=== PATIENT | male | born 1945 | race Caucasian/White ===

== ENCOUNTER 2019-12-18 09:32 | Inpatient (IN) | payer OTHER ==
[~2019-12-18] VITALS: Ht 182.9 cm; Wt 79.9 kg
[2019-12-18] MEDS ORDERED: PAXIL 20 MG TAB20 MG PO (11:12)
[2019-12-18] MEDS ORDERED: METFORMIN HCL500 M3 PO (11:13)
[2019-12-18] MEDS ORDERED: Biktarvy (11:15)
[2019-12-18 11:31] VITALS: BP 105/48
[2019-12-18] MEDS ORDERED: LISINOPRIL2.5 MG PO (13:15)
[2019-12-18] MEDS ORDERED: LIPITOR40 MG PO (13:15)
[2019-12-18] MEDS ORDERED: OMEPRAZOLE 20 M20 M1 PO (13:16)
[2019-12-18] MEDS ORDERED: COLCRYS0.6 MG PO (13:17)
[2019-12-18] MEDS ORDERED: MITIGARE0.6 MG PO (13:17)
[2019-12-18] MEDS ORDERED: BACTRIM DS TAB1 EACH PO (13:18)
[2019-12-18] MEDS ORDERED: VITAMIN B-121000 MC2 INJECTION (13:19)
[2019-12-18] MEDS ORDERED: TRAZODONE 150150 M1 PO (13:21)
[2019-12-18] MEDS ORDERED: AZITHROMYCIN500 MG PO (13:22)
[2019-12-18] MEDS ORDERED: FLOMAX0.4 MG PO (13:22)
[2019-12-18] MEDS ORDERED: ROBAXIN 750 MG750 MG PO (13:23)
[2019-12-18] MEDS ORDERED: CIPRODEX OTIC7.5 ML OTIC (13:25)
[2019-12-18] MEDS ORDERED: FLONASE 0.05%50 MCG NASAL (13:26)
[2019-12-18] MEDS ORDERED: MUCINEX600 MG PO (13:26)
[2019-12-18] MEDS ORDERED: ZOFRAN4 MG PO (13:27)
[2019-12-18] MEDS ORDERED: TOPROL XL25 MG PO (13:28)
[2019-12-18] MEDS ORDERED: ASA81BEC PO (13:28)
[2019-12-18] MEDS ORDERED: IPRAT-ALBUT 0.5-3 ML INH (13:30)
[2019-12-18] MEDS ORDERED: LANTUS SUBQ (13:42)
[2019-12-18] MEDS ORDERED: NEXIUM 24HR20 M2 PO (13:43)
[2019-12-18] MEDS ORDERED: AUGMENTIN400 MG/53 PO (13:45)
[2019-12-18 14:49] LABS: HEMOGLOBIN 6.5 gm/dL (14.0-18.0)
[2019-12-18 14:50] LABS: MCH 23.8 pg (26.0-34.0); MCHC 32.8 g/dL (28.0-37.0); MCV 72.5 fL (80.0-100.0); RBC 2.75 mil/uL (4.50-6.00); RDW 17.2 % (10.5-14.5); WBC 7.8 thou/uL (4.0-11.0)
[2019-12-18 14:58] LABS: HEMATOCRIT 19.9 % (42.0-52.0)
--- NOTE | 2019-12-18 15:50 | NUR ---
IN FOR BLOOD TRANSFUSION. FEELING VERY WEAK AND HAVING FREQUENT FALLS AT HOME. T&C DRAWN AND SENT TO BLOOD BANK. RECEIVED CALL FROM EVIE IN BLOOD BAND AT APPROXIMATELY 1300, TELLING ME THE BLOOD HAS TO BE SENT TO [facility] FOR TESTING AND PROBABLY WOULD NOT BE AVAILABLE FOR SEVERAL HOURS. NOTIFIED DR. ROBERTO AND CBC DRAWN. HGB 6.5. RECEIVED ORDER FROM DR. ROBERTO TO ADMIT PATIENT TO MED/SURG FOR FURTHER TESTING. REPORT CALLED TO FRANCISCA JONES. TRANSFERRED TO ROOM 445 VIA WC. PATIENT IN STABLE CONDITION.
[2019-12-18 16:48] VITALS: BP 118/52
[2019-12-18 19:10] VITALS: BP 103/47
--- NOTE | 2019-12-19 04:35 | NUR ---
PATIENT AOX4 MAKES NEEDS KNOWN. PATIENT IS HERE FOR BLOOD TRTANSFUSION WAITING FOR LAB TO CALL WHEN BLOOD IS OBTAINED. PATIENT USING BEDSIDE COMMODE THIS SHIFT. PATIENT IS [place]. PATIENT DENIED PAIN OR DISCOMFORT. OCCOULT STOOL COLLECT AND TAKEN TO THE LAB. NO BLEEDING NOTED THIS SHIFT. PATIENT IN BED ASLEEP AT THIS TIME BREATHING REGULAR AND UNLABOURED.
[2019-12-19 06:19] LABS: HEMOGLOBIN 6.8 gm/dL (14.0-18.0)
[2019-12-19 06:22] LABS: ABSOLUTE NEUTROPHILS 5.6 thou/uL (1.4-8.2); BASOPHILS 0.5 % (0.0-2.0); EOSINOPHILS 0.4 % (0.0-3.0); HEMATOCRIT 21.2 % (42.0-52.0); LYMPHOCYTES 20.3 % (24.0-44.0); MCH 23.5 pg (26.0-34.0); MCHC 32.3 g/dL (28.0-37.0); MCV 72.7 fL (80.0-100.0); MONOCYTES 8.8 % (1.0-8.0); RBC 2.91 mil/uL (4.50-6.00); RDW 17.5 % (10.5-14.5)
[2019-12-19 06:28] LABS: PLATELET COUNT 512 thou/uL (150-400)
[2019-12-19 06:39] LABS: ALBUMIN 1.6 g/dL (3.4-5.0); POTASSIUM 3.9 mmol/L (3.5-5.1); TOTAL BILIRUBIN 0.1 mg/dL (<0.1-1.0)
[2019-12-19 06:41] VITALS: BP 112/61; BP 113/60; BP 115/58
[2019-12-19 07:26] LABS: ANISOCYTOSIS 2+; HYPOCHROMASIA 2+; MICROCYTES SLIGHT; POLYCHROMASIA SLIGHT
[2019-12-19 11:26] LABS: HEMATOCRIT 23.3 % (42.0-52.0); HEMOGLOBIN 7.5 gm/dL (14.0-18.0)
[2019-12-19 17:25] VITALS: BP 110/48
--- NOTE | 2019-12-19 18:02 | NUR ---
PT CARE ASSUMED AT 0700. A&Ox4. HARD OF HEARING WITH HEARING AID. UP WITH ONE ASSIST AND WALKER. PT ON BOARD. IV PATENT WITH NO REDNESS OR EDEMA. SALINE LOCKED. HOME MED IN IV BIN. ONE UNIT OF BLOOD INFUSED. HGB RECHECKED AND NOW 7.5. ACHS WITH NO COVERAGE NEEDED. WHEELCHAIR IN ROOM BELONGS TO PT. EARDROPS IN LEFT EAR. USES URINAL. STILL NEEDING A STOOL SAMPLE. ELEVATED TEMP OF 101.9. GAVE TYLENOL AND RECHECKED WENT DOWN TO 98.6. AT 1700 TEMP STARTED ELEVATING AGAIN TO 99.6. NOTIFIED AND GAVE ORDERS FOR A UA WITH CULTURES. FALL PROTOCOL IN PLACE. CALL LIGHT IN REACH. WILL CONTINUE TO MONITOR.
[2019-12-19 20:30] VITALS: BP 119/61
[2019-12-20 00:57] LABS: URINE BILIRUBIN NEGATIVE (Negative); URINE BLOOD TRACE (Negative); URINE CLARITY CLEAR; URINE COLOR YELLOW; URINE GLUCOSE-RANDOM* NEGATIVE (Negative); URINE KETONES NEGATIVE (Negative); URINE LEUKOCYTES-REFLEX NEGATIVE (Negative); URINE NITRITE-REFLEX NEGATIVE (Negative); URINE PROTEIN (DIPSTICK) NEGATIVE (Negative)
[2019-12-20 02:48] LABS: ABSOLUTE NEUTROPHILS 5.6 thou/uL (1.4-8.2); BASOPHILS 0.3 % (0.0-2.0); EOSINOPHILS 0.3 % (0.0-3.0); HEMATOCRIT 23.2 % (42.0-52.0); HEMOGLOBIN 7.6 gm/dL (14.0-18.0); LYMPHOCYTES 22.4 % (24.0-44.0); MCH 24.5 pg (26.0-34.0); MCV 74.5 fL (80.0-100.0); MONOCYTES 10.9 % (1.0-8.0); PLATELET COUNT 448 thou/uL (150-400); POLYS 66.1 % (36.0-66.0); RBC 3.11 mil/uL (4.50-6.00); RDW 18.7 % (10.5-14.5); WBC 8.5 thou/uL (4.0-11.0)
[2019-12-20 04:00] VITALS: BP 111/49
--- NOTE | 2019-12-20 07:56 | NUR ---
PT LYING IN BED. VOIDING PER URINAL. DENIES PAIN. RESTING COMFORTABLY. NO NEEDS VOICED. FREQUENT OBSERVATION.
[2019-12-20 08:16] VITALS: BP 105/49
--- NOTE | 2019-12-20 12:51 | NUR ---
ASSUMED CARE AT 0700. PT SLEEPING, ALERT AND ORIENTED. PILOT STATION. ASKING WHAT THE PLAN WAS TODAY. VERBALIZES UNDERSTANDING OF PLAN FOR THE DAY. NO OTHER COMPLAINTS. VSS, LOW TEMP, WILL MONITOR. RA. TOLERATING CLEARS. BLOOD SUGARS WNL. PIV SL NO COMPLICATIONS. NO C/O PAIN. WILL CONTINUE TO MONITOR. AWAITING STOOL SAMPLE, VOIDING PER URINAL WITHOUT PROBLEMS. UP WITH ASSIST TO BSC.
[2019-12-20 17:11] VITALS: BP 102/53
[2019-12-20 19:41] VITALS: BP 115/44
[2019-12-21 05:20] VITALS: BP 101/45
[2019-12-21 05:52] LABS: ABSOLUTE NEUTROPHILS 6.3 thou/uL (1.4-8.2); BASOPHILS 0.2 % (0.0-2.0); EOSINOPHILS 0.2 % (0.0-3.0); HEMATOCRIT 24.5 % (42.0-52.0); HEMOGLOBIN 7.9 gm/dL (14.0-18.0); LYMPHOCYTES 18.2 % (24.0-44.0); MCH 24.4 pg (26.0-34.0); MCHC 32.4 g/dL (28.0-37.0); MCV 75.2 fL (80.0-100.0); MONOCYTES 9.1 % (1.0-8.0); PLATELET COUNT 481 thou/uL (150-400); POLYS 72.3 % (36.0-66.0); RBC 3.26 mil/uL (4.50-6.00); WBC 8.7 thou/uL (4.0-11.0)
[2019-12-21 07:48] VITALS: BP 118/58
--- NOTE | 2019-12-21 08:00 | NUR ---
PT LYING IN BED. DENIES PAIN. PLAN FOR EGD AND COLONOSCOPY 12/20. RESTING COMFORTABLY. NO NEEDS VOICED. CALL LIGHT WITHIN REACH. FREQUENT OBSERVATION.
[2019-12-21 08:17] VITALS: BP 115/55
[2019-12-21 09:08] VITALS: BP 115/55
[2019-12-21 12:31] LABS: % SATURATION 7 % (20-39); IRON 11 ug/dL (65-175); TIBC 154 ug/dL (250-450)
--- NOTE | 2019-12-21 16:12 | NUR ---
PT ADMITTED RELATED TO MICROCYTIC ANEMIA; WEAKNESS WITH FREQUENT FALLS. CM ATTEMPTED NUMEROUS PC'S TO ROOM THIS DAY WITH NO RESPONSE. PT HAD EGD AND COLONOSCOPY DONE THIS DAY. CM ATTEMPTED PC TO NUMBER LISTED FOR PT'S BROTHER MIGUELITO INDIVIDUAL WHO ANSWERED INDICATED WRONG NUMBER. THERAPY INDICATED THAT PT RESIDES ALONE WITH NO STEPS TO NAVIGATE AND A WC FOR HOME USE. CM FOLLOWING INDICATED WITH DC PLANNING.
[2019-12-21 16:24] VITALS: BP 112/48
--- NOTE | 2019-12-21 18:58 | NUR ---
VSS-LOW GRADE TEMP THROUGH SHIFT. LUNGS CLEAR-ROOM AIR. NO C/O PAIN. OOB WITH ASSIST X 2, UNSTEADY ON FEET. RESUMED DIET POST PROCEDURES, NO DIFFICULTY, TOLERATED MEALS WELL. FALL PRECAUTIONS IN PLACE, REMAINS IMPULSIVE.
[2019-12-21 19:47] VITALS: BP 108/52
[2019-12-22 01:04] VITALS: BP 111/57
--- NOTE | 2019-12-22 03:23 | NUR ---
PATIENT HAD A TEMP.OF 101 TYLENOL GIVEN PER ORDER, TEMP IS 99.0 AT THIS TIME. PATIENT DENIED PAIN OR DISCOMFORT. NO S/S OF BLEEDING THIS SHIFT. PATIENT USES URINAL OR BEDSIDE COMMODE. PATIENT ENCOURAGED FLUIDS THIS SHIFT. PATIENT IN BED ASLEEP AT THIS TIME BREATHING REGULAR AND UNLABOURED.
[2019-12-22 04:25] VITALS: BP 108/63
[2019-12-22 07:41] VITALS: BP 124/63
[2019-12-22 11:45] LABS: TSH 1.782 uIU/mL (0.358-3.740)
--- NOTE | 2019-12-22 13:37 | NUR ---
ASSUMED CARE AT 0700. PT ALERT AND ORIENTED, ROSEBUD. SLEEPING COMFORTABLY IN BED. VSS, WITH TEMP OF 100. RA. VOIDING PER URINAL. TOLERATING DIET. BLOOD SUGARS CONTROLLED. PIV WITHOUT COMPLICATIONS. NO COMPLAINTS OF PAIN. PRN MEDICATIONS GIVEN ORDERED. WILL CONTINUE TO MONITOR
[2019-12-22 14:34] VITALS: BP 101/49
--- NOTE | 2019-12-22 18:02 | NUR ---
SW reviewed chart and spoke with nursing and attending physician. Pt may need EUS completed per GI. Pt may need transfer to [facility] for procedure. SW attempted to obtain contact number for pt's brother. Number listed and provided by pt is not the correct number. SW is following to assist as needed with discharge planning.
[2019-12-22 19:19] VITALS: BP 118/61
--- NOTE | 2019-12-22 19:23 | NUR ---
ASSUMED CARE OF PATIENT AT AROUND 1300, REPORT FROM ROMAIN/RN. PATIENT UP IN THE RECLINER. DENIES PAIN. RIGHT HAND IV FLUSHED WITH NS AND REMAINS PATENT. THIS RN PAGED DR ROBERTO IN REGARD TO METFORMIN, PATIENT HAD CT SCAN WITH CONTRAST, NO RETURN CALL, METFORMIN HELD. DINNER BLOOD SUGAR 105, PATIENT STATES HE WILL EAT LATER. VOIDS PER URINAL. [place], WITH AMPLIFIED BOX FOR ASSISTANCE WITH HEARING. WILL CONTINUE TO MONITOR.
[2019-12-23 03:07] LABS: IgG 2239 mg/dL (603-1613); IgM 86 mg/dL (15-143)
[2019-12-23 04:07] LABS: IgA 913 mg/dL (61-437)
--- NOTE | 2019-12-23 04:41 | NUR ---
ASSESSED AT START OF SHIFT PT ALERT AND ORIENTED. [place] AND HAS AN AMPLIFIER BOX FOR COMMUNICATION. EVENING MEDS GIVEN AND TYLENOL GIVEN FOR TEMP. URINAL AT BEDSIDE. DENIES PAIN, N AND VOMITTING. FALL PREQ IN PLACE AND WILL CONT WITH POC TILL EOS.
[2019-12-23 05:07] VITALS: BP 106/47
[2019-12-23 07:20] VITALS: BP 110/58
[2019-12-23 13:20] VITALS: BP 126/42
[2019-12-23 13:55] LABS: HEMATOCRIT 24.4 % (42.0-52.0); HEMOGLOBIN 7.9 gm/dL (14.0-18.0); MCH 24.4 pg (26.0-34.0); MCHC 32.4 g/dL (28.0-37.0); MCV 75.3 fL (80.0-100.0); RBC 3.24 mil/uL (4.50-6.00); RDW 19.3 % (10.5-14.5); WBC 9.2 thou/uL (4.0-11.0)
[2019-12-23 14:06] LABS: INR 1.1; PROTIME 10.9 Seconds (9.3-11.4)
--- NOTE | 2019-12-23 15:16 | NUR ---
CM SPOKE WITH PT'S BROTHER MIGUELITO AT [phone]. 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 HE INDICATED THAT PT HAD A FWW AND A WC THAT HE HAD NOT BEEN USING VERY WELL RIFLE CASE REPAIRER. HE INDICATED THAT PT HADN'T BEEN DOING WELL WITH HIS ADLS RIFLE CASE REPAIRER AND THAT HE AND HIS SISTER WERE GOING OVER TO CHECK ON/HELP PT EVERY OTEHR DAY RIFLE CASE REPAIRER. HE INDICATED THAT PT HAD BEEN ON SERVICE WITH [facility] RIFLE CASE REPAIRER. CM ASKED DC TALENT ENGINEER TO NOTIFY THEM THAT PT IS HERE AN INPATIENT. MIGUELITO INDICATED THAT PT HAD BEEN TO [facility], [facility], AND [facility] IN [place] IN THE PAST. HE INIDCATED THAT HE WAS AGREEABLE WITH PT GOING FOR A POST ACUTE CARE STAY BUT THAT CM WOULD NEED TO CONFIRM WITH PT. SHAY INDICATED THAT DR. HOPSON CAN DO AN EUS WITH BIOPSY THIS SATURDAY. CM TRYING TO SEE IF PT IS TO GO FOR THAT AN OUTPATIENT OR IF PT WILL NEED BE BE TRANSFERED AN INPATIENT. CM TO FOLLOW INDICATED WITH DC PLANNING.
[2019-12-23 15:39] VITALS: BP 104/59
--- NOTE | 2019-12-23 16:07 | PATH ---
[facility] [address] [place] [address] PATHOLOGY RPT PROCEDURE Name: KATHERINE GIBSON Room #: 445-P ADM IN M.R.#: [id number] Admission: 12/18/19 Date of : 45 Discharge: Report #: [id number] Path Case #: [id number] LCA Accession Number: [id number] . 01 Material submitted: . colon - POLYP AT TRANSVERSE. Modifiers: transverse . 01 Clinical history: . Anemia . 02 Diagnosis: Polyp, transverse colon, endoscopic biopsy: - Minute tubular adenoma. - Negative for high-grade dysplasia. (IUV:balance wheel screw hole tapper; 12/23/2019) MBR 12/23/2019 1229 Local . 02 Electronically signed: . Comfort Mack MD, Pathologist NPI- [id number] . 01 Gross description: . The specimen is received in formalin, labeled "Katherine Gibson, a polyp at transverse" and consists of a fragment of maciel tissue measuring 0.5 x 0.2 x 0.2 cm which is entirely submitted in A1. (REBECCA; 12/22/2019) JFQ/LINDA 12/22/2019 1059 Local . 02 Pathologist provided ICD-10: D12.3 . 02 CPT . 190586 Specimen Comment: A courtesy copy of this report has been sent to [phone] Specimen Comment: [id number] Specimen Comment: Report sent to / DR ROBERTO Performed at: [address], [place] [id number] MD Benji Llanes MD Phone: [phone] Performed at: [address] [id number] MD Comfort Mack MD Phone: [phone]
--- NOTE | 2019-12-23 16:11 | NUR ---
FAXED REFERRAL TO [facility] SPOKE WITH BENY IN ADM SHE RECEIVED REFERRAL AND WILL REVIEW. PT HAS BEEN AT THEIR FACILITY IN THE PAST. DP TO FOLLOW.
--- NOTE | 2019-12-23 16:12 | NUR ---
PT ON SERVICE WITH [facility] PRIOR TO ADM FAXED CLINICAL UPDATE RECEIVED CONFIRMATION AND LEFT MSG WITH ADM.
--- NOTE | 2019-12-23 16:29 | NUR ---
ASSUMED CARE OF THE PT AT 0700. PT IS ON BEDREST AND IS VERY WEAK WHEN UP WITH ASSIST X1 WITH GAIT BELT AND WALKER. IV DRY AND INTACT. IR FOR CT GUIDED BIOPSY TO BE DONE TOMORROW. PT WILL BE NPO AFTER MIDNIGHT. PT TO D/C TO REHAB, NOT HOME, CM NOTIFIED PER DOCTOR. PT KEEPS RUNNING LOW GRADE TEMP, MEDS GIVEN SEE EMAR. DPOA PHONE NUMBER IS , MIGUELITO, CONTACT, LEFT VM. PT USES URINAL. PT IS [place] AND USES DEVICE. FALL PRECAUTIONS IN PLACE, BED IN THE LOWEST POSITION AND CALL LIGHT IS WITHIN REACH. WILL CONTINUE TO MONITOR THE PT.
[2019-12-23 19:14] VITALS: BP 128/49
[2019-12-24] VITALS (17 sets, daily range): BP systolic 100–120; BP diastolic 50–62
--- NOTE | 2019-12-24 02:36 | NUR ---
ASSESSED AT START OF SHIFT. PT RESTING IN BED [place] OF HEARING. EVENING MEDS GIVEN AND PT NPO AFTER MIDNNIGHT FOR IR TOMORROW. URINAL AT BEDSIDE. DENIES PAIN. FALL PREC IN PLACE AND WILL CONT WITH POC TILL EOS.
[2019-12-24 05:42] LABS: POTASSIUM 4.1 mmol/L (3.5-5.1)
[2019-12-24 05:43] LABS: CALCIUM 8.2 mg/dL (8.5-10.1)
[2019-12-24 10:08] LABS: ANA INTERPRETATION Negative (Negative)
--- NOTE | 2019-12-24 15:12 | NUR ---
REFERRAL FAXED YESTERDAY TO [facility] SPOKE WITH BENY IN ADM SHE CAN ACCEPT AT [place].
--- NOTE | 2019-12-24 15:53 | NUR ---
FAXED REFERRALTO [facility] SPOKE WITH MICHAEL IN ADM SHE RECEIVED REFERRAL AND THE DON IS REVIEWING WILL F/U WITH HER IN THE AM. DP TO FOLLOW.
--- NOTE | 2019-12-24 15:58 | NUR ---
[facility] CAN ACCEPT PT AND WE ARE AWAITING RESPONSE FROM [facility] WHERE DR. YENNIFER ROBERTO WOULD BE ABLE TO FOLLOW PT. CM TO FOLLOW INDICATED WITH DC PLANNING. PT HAD BIOPSY THIS DAY AWAITING RESULTS.
--- NOTE | 2019-12-24 19:32 | NUR ---
PT CARE ASSUMED AT 0700. A&Ox3-4. HARD OF HEARING AND USES A AMPLIFIER BOX. USES THE URINAL. IV IS PATENT WITH NO REDNESS OR EDEMA, SALINE LOCKED. ACHS WITH NO COVERAGE NEEDED. ON ROOM AIR. OT/PT ON BOARD. WENT FOR BIOPSY TODAY AND HAS NOT HAD AN APETITE SINCE RETURNING. BLOOD SUGARS ARE STILL GOOD BUT WILL CONTINUE TO ENCOURAGE HIM TO EAT SAMLL SNACK AND MONITOR BLOOD GLUCOSE. CALL LIGHT IN REACH. FALL PROTOCOL IN PLACE. WILL CONTINUE TO MONITOR.
[2019-12-24 20:07] LABS: HISTOPLASMA MYCELIAL-ID Negative (Negative)
[2019-12-24 21:07] LABS: HISTOPLASMA MYCELIAL-CF Negative (Neg:<1:2)
--- NOTE | 2019-12-25 02:54 | NUR ---
ASSESSED AT START OF SHIFT PT LAYING IN BED DIDN'T TOUCH DINNER TRAY. NIGHT TIME BLOOD SUGAR CHECKED 103 THIS SHIFT. EVENING MEDS GIVEN AND PT RUSSEL IT WELL. NIGHT TIME SNACKS GIVEN WITH HILDA DRINK. PT A&OX4 [place] AND HAS AN AMPLIFIER BOX. URINAL AT BEDSIDE FALL PREC IN PLACE AND CALL LIGHT IN REACH WILL CONT WITH POC TILL EOS.
[2019-12-25 05:22] VITALS: BP 110/53
[2019-12-25 05:27] LABS: HEMATOCRIT 24.3 % (42.0-52.0); MCH 24.5 pg (26.0-34.0); MCV 74.4 fL (80.0-100.0); RBC 3.27 mil/uL (4.50-6.00); RDW 19.7 % (10.5-14.5); WBC 10.8 thou/uL (4.0-11.0)
[2019-12-25 05:50] LABS: ALBUMIN 1.5 g/dL (3.4-5.0); CREATININE 1.1 mg/dL (0.7-1.3); POTASSIUM 4.3 mmol/L (3.5-5.1); TOTAL BILIRUBIN 0.5 mg/dL (<0.1-1.0); TOTAL PROTEIN 8.1 g/dL (6.4-8.2)
[2019-12-25 07:14] VITALS: BP 111/66
[2019-12-25 15:07] VITALS: BP 129/69
--- NOTE | 2019-12-25 16:36 | NUR ---
PT TO REMAIN HERE OVER WEEKEND TO HAVE MRI. [facility]
[2019-12-25 19:50] VITALS: BP 115/67
[2019-12-26 04:20] VITALS: BP 106/48
--- NOTE | 2019-12-26 06:25 | NUR ---
PT HAD A FEVR OF 100.3 AT THE START OF SHIFT,MANAGED WITH PO TYLENOL,EFFECTIVE.URINAL AT BEDSIDE.PT ALTURAS.PT DENIED PAIN/N/V THIS SHIFT.NO BM THIS SHIFT.PT RESTING ON HIS BED AT THIS TIME.FALL PRECAUTIONS IN PLACE,CALL LIGHT WITHIN REACH.
[2019-12-26 08:53] VITALS: BP 112/67
--- NOTE | 2019-12-26 16:14 | NUR ---
PT A&OX SELF AND PLACE. DENIED PT TODAY SLEEPING THROUGHOUT THE DAY. USES URINAL AND BEDPAN. HAS POOR APPETITE. CALL LIGHT WITH IN REACH, BED ALARM ON. BROTHER MIGUELITO WAS UPDATED TODAY.
[2019-12-26 18:01] VITALS: BP 99/50
[2019-12-26 20:35] VITALS: BP 115/61
--- NOTE | 2019-12-27 00:55 | NUR ---
PT AFEBRILE SO FAR.PT DENIED PAIN/N/V.PT UP TO THE BR WITH ASSIST X1,GAIT BELT AND WALKER,PT ABLE TO MAKE IT TO THE BR BUT WAS NOT ABLE TO MAKE IT BACK TO HIS BED DUE TO BEING SO WEAK.PT WAS INFORMED TO USE BEDPAN SINCE HE IS SO WEAK.SOFT LOOSE BROWN STOOL NOTED.BG MONITORED WITH NO COVERAGE.PT RESTING ON HIS BED AT THIS TIME.FALL PRECAUTIONS IN PLACE,CALL LIGHT WITHIN REACH.
[2019-12-27 03:45] VITALS: BP 111/59
[2019-12-27 05:43] LABS: BASOPHILS 0.4 % (0.0-2.0); EOSINOPHILS 0.1 % (0.0-3.0); HEMATOCRIT 25.5 % (42.0-52.0); HEMOGLOBIN 8.5 gm/dL (14.0-18.0); MCH 24.6 pg (26.0-34.0); MCHC 33.3 g/dL (28.0-37.0); MONOCYTES 8.4 % (1.0-8.0); PLATELET COUNT 513 thou/uL (150-400); POLYS 77.1 % (36.0-66.0); RBC 3.45 mil/uL (4.50-6.00); RDW 19.4 % (10.5-14.5); WBC 10.4 thou/uL (4.0-11.0)
[2019-12-27 06:01] LABS: ALBUMIN 1.6 g/dL (3.4-5.0); CALCIUM 8.3 mg/dL (8.5-10.1); CREATININE 1.1 mg/dL (0.7-1.3); POTASSIUM 4.4 mmol/L (3.5-5.1); TOTAL BILIRUBIN 0.3 mg/dL (<0.1-1.0); TOTAL PROTEIN 8.3 g/dL (6.4-8.2)
[2019-12-27 09:02] VITALS: BP 90/43
[2019-12-27 16:27] VITALS: BP 123/64
--- NOTE | 2019-12-27 16:41 | NUR ---
PT A&OX3-4. LETHARGIC. IV INTACT IN R AC. TOO WEAK TO TRANSFER WITH ASSIST AT THIS TIME, PT USES URINAL AND BEDPAN. CALL LIGHT W/ REACH ALARM IS ON.
[2019-12-27 19:13] VITALS: BP 120/57
[2019-12-28 03:50] VITALS: BP 101/39
--- NOTE | 2019-12-28 06:08 | NUR ---
ASSUMED PT CARE AT 1900. PT REPORTS NO PAIN. IS STILL VERY WEAK AND USES THE BEDPAN AND URINAL. BLOOD SUGAR WNL. ASKED FOR A BOX LUNCH AND ATE VERY LITTLE OF IT. FALL PRECAUTIONS IN PLACE. SLEPT MOST THE SHIFT, NO OTHER SIGNIFICANT CHANGES.
[2019-12-28 08:06] VITALS: BP 120/66
--- NOTE | 2019-12-28 14:08 | PATH ---
[facility] [address] [address] PATHOLOGY RPT PROCEDURE Name: JORGITO GIBSON Room #: 445-P ADM IN M.R.#: [id number] Admission: 12/18/19 Date of : 45 Discharge: Report #: [id number] Path Case #: [id number] Note LCA Accession Number: [id number] TESTS RESULT FLAG UNITS REF RANGE LAB Clinician Provided Cytology Information No. of containers..01 Slide Source: RETRO PERITNEAL MASS DIAGNOSIS: 02 RETRO PERITNEAL MASS, FINE NEEDLE ASPIRATION INCONCLUSIVE. SCATTERED ATYPICAL LYMPHOCYTES, SEE COMMENT. LYMPHOCYTES, HISTIOCYTES AND BLOOD ARE PRESENT, CONSISTENT WITH A LYMPH NODE. Commetn: Examination of the smears is limited by air-drying artifact along with a lack of formalin fixed cell block for additional stains to be performed. The smears show scattered atypical and enlarged lymphocytes which may represent air-drying artifact or neoplastic cells. Portion of this sample was submitted in RPMI which is sent for flowcytometric analysis. Results of this will be submitted in an addendum to this report. Please note that an FNA sample of an enlarged lymph node may not be reliable as sample may not be outbound telemarketing representative; an excisional biopsy is suggested if clinically indicated. Correlate clinically and follow-up as indicated. Pathologist ICD10: 02 K68.9 Addendum: 02 Special studies report received from [facility], [address] [place] [address], [address], [place], [address], on case [id number], labeled with their number [id number], dated 12/26/2019. . Flow Cytometry: Hematologic Neoplasia Assessment . Clinical History Retroperitoneal mass . Indication for Study Evaluation for hematolymphoid neoplasia . Specimen Tissue, Retroperitoneal Mass . Viability 74% (7AAD exclusion) . Interpretation Tissue, Retroperitoneal Mass: No evidence of B-cell or T-cell lymphoproliferative disorder [address] [address] PATHOLOGY RPT PROCEDURE Name: JORGITO GIBSON Room #: 445-P ADM IN M.R.#: [id number] Admission: 12/18/19 Date of : 45 Discharge: Report #: [id number] Path Case #: [id number] . Comments No immunophenotypic evidence of non-Hodgkin lymphoma, blastic cells or plasmacytoma is detected in this analysis. Some large cell lymphomas are prone to rapid degeneration which can render such lesions undetectable by flow cytometry. Also, Hodgkin lymphoma, some T cell lymphomas, and T-cell-rich B-cell lymphoma may not be detectable by flow cytometry. A thorough clinical, histologic and immunohistochemical correlation is recommended for full exclusion of non-hematolymphoid cellular processes, atypical lymphoid reactions, granulomatous disease or Hodgkin lymphoma. . Populations Analyzed Lymphocytes: 35% B-cells: 2.7%, polytypic/polyclonal sIg light chain pattern K/L=2:1 T-cells: no significant abnormalities of the markers tested CD4:CD8: 0.4 Granulocytes: 17.4% Present and phenotypically mature neutrophils. CD45 Negative 47% No significant reactivity with the markers tested Events/Debris: (may represent non-hematolymphoid cells, degenerated cells, debris, unlysed red blood cells, etc.) . Morphologic Evaluation A slide was reviewed for type disk quality control supervisor purposes only. . Specimen Description Due to low cell count, the lab is unable to provide an accurate cell yield. A limited panel of antibodies was performed and an average of 8,418 events were acquired per tube. Flow cytometry data derived from an acquisition with less than 10,000 events needs to be interpreted within the context of all clinical, laboratory, and morphologic information. . Reagent(s) Used CD3, CD4, CD5, CD8, CD10, CD19, CD20, CD38, CD45, CD57, kappa, lambda . at [facility]. Jose Burger MD Pathologist . . Intended Use Flow cytometry is optimally used to immunophenotypically characterize abnormal populations when they are detected. Negative flow cytometry results do not exclude lymphoma or neoplasia. Possible false negative flow cytometry results may occur in, but are not limited to, the following: neoplastic cells in Hodgkin lymphoma are not typically adequately [address] [address] PATHOLOGY RPT PROCEDURE Name: JORGITO GIBSON Room #: 445-P ADM IN M.R.#: [id number] Admission: 12/18/19 Date of : 45 Discharge: Report #: [id number] Path Case #: [id number] represented by routine clinical flow cytometry; neoplastic cells may be lost or inadequately represented due to degeneration, sample processing, sampling artifact, or patchy involvement; plasma cells are typically underrepresented by flow cytometry; immature cells/blasts may be underrepresented due to hemodilution; myeloproliferative disorders and low grade myelodysplasia may not have immunophenotypic abnormalities or increased blasts. Correlation with all available clinical, laboratory, and morphologic data is always necessary to assess for the possibility of false negative flow cytometry results and to establish a diagnosis. Each marker in this analysis was used to assess for potential antigenic abnormalities or to evaluate detected abnormalities. . Any image or images that accompany this report are outbound telemarketing representative images only and should not be used to render a diagnosis. . Disclaimer(s) This test was developed and its performance characteristics determined by [facility]. It has not been cleared or approved by the Food and Drug Administration. . [facility] is a business unit of [employer] a wholly-owned subsidiary of [employer]. . This test was performed at [facility]. at [address] [facility] [address], [place], [address] - [place] Pumper: Jim Strickland MD. . For inquiries, the physician may contact Lab: [phone] . A complete copy of the report is on file. . Professional services performed by [employer]. at [address], [place] [address]. Technical services performed by [employer]. at [address], [place] [address]. . (IUV:amj 12/28/2019) . AZJ/12/28/2019 Addendum Electronically Signed by Comfort Mack MD, Pathologist Signed out by: 02 Comfort Mack MD, Pathologist NPI- [id number] Performed by: 01 Dar Burton, Housing Liaison (ASCP) Gross description: [address] [address] PATHOLOGY RPT PROCEDURE Name: JORGITO GIBSON Room #: 445-P ADM IN M.R.#: [id number] Admission: 12/18/19 Date of : 45 Discharge: Report #: [id number] Path Case #: [id number] 3FX 3 AD /DREW 12/24/2019 1314 Local FLAG LEGEND: L-Low Normal,H-High Normal,LL-Alert Low,HH-Alert High <-Panic Low,>-Panic High,A-Abnormal,AA-Critical Abnormal Performed at: 01 [facility] [place] [address] [facility] [address] [place] [address] Benji Llanes MD, 02 [facility] [address] [address] Comfort Mack MD, Specimen Comment: [id number] Specimen Comment: A duplicate report has been generated due to demographic updates. Performed at: [address], [place], [place] [id number] MD Benji Llanes MD Phone: [phone]
--- NOTE | 2019-12-28 16:17 | NUR ---
CM GOT CONSULT TO ARRANGE OP EUS ERCP AT [facility] WITH DR. HOPSON FOR THIS SATURDAY. THEY CALLED AND INDICATED THAT THEN NEED CLINICAL INFO FAXED OVER. CM SENT CLINICAL INFO TO [facility] ASKED THAT RADIOLOGY CLOUD IMAGING OVER TO THEM. CM NOTIFIED CM CAN CLOSING MACHINE TENDER OF INTENTION FOR PT TO GO TO [facility] FOR PROCEDURE AND READMIT HERE TO [facility]. CM TO FOLLOW INDICATED WITH DC PLANNING.
[2019-12-28 16:45] VITALS: BP 111/52
--- NOTE | 2019-12-28 17:47 | NUR ---
ASSUMED CARE OF THE PT AT 0700. PT IS VERY WEAK AND UNABLE TO AMBULATE, EVEN WITH ASSISTANCE. MRI DONE IN THE AM, WITH CONTRAST, DID NOT GIVE PT METFORMIN. PT IS VERY INCONTINENT OF B&B. [facility]SEP STAFF CALLED AND REQ FACE SHEET, H&P FROM ADMITTING, MOST RECENT MD PROGRESS NOTES, ANY DIAGNOSTIC TESTS AND ANY RECENT CONSULTATIONS, FAXED TO ATTENTION DONEVA. PAGED DOCTOR TO SEE IF A COVID TEST CAN BE DONE, PER JOSHUA CAR FOR PT TO HAVE OUT PT PROCEDURE DONE ON SAT. PT CAN SELF TURN. CALL LIGHT WITHIN REACH, BED IN THE LOWEST POSITION AND FALL PRECAUTIONS IN PLACE. WILL CONTINUE TO MONITOR THE PT.
[2019-12-28 19:42] LABS: TSH 2.29 uIU/mL (0.358-3.740)
[2019-12-28 20:06] VITALS: BP 101/44
--- NOTE | 2019-12-29 01:09 | NUR ---
PT AWAKE, ALERT, ORIENTED TO NAME. UNABLE TO ASSESS PT ORIENTATION TO PLACE, TIME, AND SITUATION DUE TO PT BEING LETHARGIC AND HARD OF HEARING. PROVIDED LOW STIMULI ENVIRONMENT, PT OBSERVED RESTING. PT ABLE TO REPOSITION INDEPENDENTLY, PT USING URINAL TO VOID. PT TOLERATING PO INTAKE OF FLUIDS AND CARB CONTROLLED DIET. PT NOTED TO HAVE WEAKNESS, CONTINUED TO REST IN BED. PT RECEIVING THIAMINE VIA IV PIGGYBACK DAILY, FIRST DOSE STARTED THIS SHIFT. COVID SWAB COLLECTED AT MIDNIGHT, SENT TO LAB, PENDING RESULTS PT ANTICIPATING DISCHARGE TO [facility]. PT ROOM REMAINS NEAR NURSE STATION, CALL LIGHT WITHIN REACH, BED ALARM ON, BED IN LOWEST POSITION. WILL CONTINUE TO MONITOR.
[2019-12-29 08:09] VITALS: BP 116/64
--- NOTE | 2019-12-29 08:38 | NUR ---
RECEIVED REPORT FROM NIGHT RN THAT PT WILL MOVE TO [facility] TO FOLLOW UP MASS ON HIS PANCREASE. COVID SWAB TEST DONE LAST NIGHT AND STILL WAIT FOR THE RESULT. RECEIVED PHONE CALL FROM CHRIS AT [facility] REQUESTS TO INFORM THEM ABOUT THE RESULT SOON POSSIBLE TO [facility] AT [phone]. NOTE IN ORDER FOR STAFFING NURSE TO CONTINUE TO FOLLOW UP, SEE ARLENE ORDER IN [facility].
--- NOTE | 2019-12-29 14:12 | NUR ---
COVID SCREENING LAB WAS NEGATIVE CM FAXED RESULT TO [facility] AND IT WAS CONVEYED TO [facility]. CM AWAITING CALL BACK WITH IN FOR SCHWDULING FOR EUS PROCEDURE.
--- NOTE | 2019-12-29 16:19 | NUR ---
PT IS TO GO TO [facility] TOMORROW MORNING Saturday12/30/19. [facility] TO PICK PT UP AT 8:00AM. THEY ARE TO TRANSPORT PT TO REGISTRATION AT [facility]. REPORT TO BE CALLED TO PACU AT . PT AND BROTHER AWARE AND AGREEABLE.PT IS TO RETURN HERE FOLLOWING EUS PROCEDURE WITH DR. HOPSON.
[2019-12-29 16:44] VITALS: BP 110/58
[2019-12-29 19:21] VITALS: BP 117/63
--- NOTE | 2019-12-30 02:02 | NUR ---
ASSUMED PT CARE AT 1900. PT SEEMS WITHDRAWN THIS EVENING. DENIES PAIN. POOR APPETITE AND DID NOT WANT TO EAT UNTIL THIS NURSE OFFERED HIM ICE CREAM, HE ATE IT ALL. USING URINAL DUE TO BEING TOO WEAK TO GET UP. BLOOD SUGARS TO BE CHECKED QAM NOW. SLEPT ON AND OFF ALL NIGHT. REMINDED PT HE IS TO GO TO [facility] IN THE MORNING FOR PROCEDURE. NO OTHER SIGNIFICANT CHANGES.
[2019-12-30 04:46] VITALS: BP 114/69
[2019-12-30 06:25] LABS: ABSOLUTE NEUTROPHILS 9.8 thou/uL (1.4-8.2); BASOPHILS 0.3 % (0.0-2.0); HEMATOCRIT 25.1 % (42.0-52.0); LYMPHOCYTES 13.9 % (24.0-44.0); MCH 23.7 pg (26.0-34.0); MCHC 31.9 g/dL (28.0-37.0); MCV 74.2 fL (80.0-100.0); MONOCYTES 7.4 % (1.0-8.0); PLATELET COUNT 519 thou/uL (150-400); POLYS 78.4 % (36.0-66.0); RBC 3.38 mil/uL (4.50-6.00); RDW 19.3 % (10.5-14.5); WBC 12.5 thou/uL (4.0-11.0)
[2019-12-30 06:40] LABS: INR 1.1; PROTIME 11.4 Seconds (9.3-11.4)
[2019-12-30 06:41] LABS: ALBUMIN 1.6 g/dL (3.4-5.0); CALCIUM 8.1 mg/dL (8.5-10.1); CREATININE 1.4 mg/dL (0.7-1.3); POTASSIUM 4.6 mmol/L (3.5-5.1); TOTAL BILIRUBIN 0.2 mg/dL (<0.1-1.0); TOTAL PROTEIN 8.4 g/dL (6.4-8.2)
[2019-12-30 07:38] VITALS: BP 125/54
[2019-12-30 15:18] VITALS: BP 145/66
--- NOTE | 2019-12-30 16:17 | NUR ---
PT TRANSFERED TO [facility] US PROCEDURE AND RETURNED APPROX 15:30. A&OX4. NEW IV IN R FA. PT MORE ALERT TODAY. MORNING MEDS GIVEN. VSS. CALL LIGHT W/I REACH, BED ALARM ON. PT USES URINAL. WILL CONT POC.
[2019-12-30 21:30] VITALS: BP 118/57
--- NOTE | 2019-12-31 01:08 | NUR ---
ASSUMED PT CARE ATAPPROX 1899.PT WAS OBSERVED LYING ON HIS BACK IN BED WATCHING TV AT SHIFT CHANGE.PT'S BROTHER CALLED AND STATED THAT PT LEFT HIS CLOTHES AND SOME OTHER BELONGINGS AT [facility],HE PICKED THEM UP FOR HIM AND BROUGHT IT OVER HERE.PT'S BROTHER STATED THAT HE TOOK HIS CREDIT CARD HOME FOR SAFE KEEPING.PT'S BROTHER WAS TRANSFERRED TO PT'S ROOM AND HE SPOKE WITH PT.PT HAD A FEVER OF 101.1 AT HS,MANAGED WITH MED,EFFECTIVE.PT STILL WEAK AND [place].URINAL AT BEDSIDE.PT RESTING ON HIS BED AT THIS TIME.FALL PRECAUTIONS IN PLACE,CALL LIGHT WITHIN REACH.
[2019-12-31 03:00] VITALS: BP 102/35
[2019-12-31 06:06] LABS: CREATININE 1.3 mg/dL (0.7-1.3); POTASSIUM 4.8 mmol/L (3.5-5.1)
[2019-12-31 07:17] VITALS: BP 114/55
--- NOTE | 2019-12-31 15:47 | NUR ---
FAXED CLINICAL UPDATE TO [facility] RECEIVED CONFIRMATION AND LEFT MSG WITH BENY IN ADM THAT I WILL F/U WITH HER REGARDING DC PLANS TOMORROW AFTER [facility].
--- NOTE | 2019-12-31 16:15 | NUR ---
CLINICAL UPDATES SENT TO [facility] THIS DAY. AWAITING BIOPSY RESULTS. CM TO FOLLOW INDICATED WITH DC PLANNING.
[2019-12-31 16:18] VITALS: BP 105/63
--- NOTE | 2019-12-31 19:12 | NUR ---
ASSUMED CARE OF PATIENT AT 0715, PATIENT ALERT WITH CONFUSION. PAIBHUMIKA DENIES PAIN THIS SHIFT. PATIENT STILL HAS POOR APPETITE. PATIENT HAD 2 LOOSE, VERY FOUL ODOR, DR ROBERTO NOTIFIED, RECEIVED ORDER TO COLLECT C-DIFF STOOL SAMPLE. ISOLATION CART ORDERED. PATIENT AM BLOOD SUGAR 88, METFORMIN HELF THIS EVENING, DUE TO PATIENT REFUSED DINNER. PATIENT HAS LEFT HAND IV IN PLACE, FLUSHED WITH NS AND REMAINS PATENT. WILL CONTINUE TO MONITOR.
[2019-12-31 19:30] VITALS: BP 119/66
--- NOTE | 2019-12-31 21:42 | NUR ---
PT DENIED PAIN SO FAR.PT REQUESTED FOR AND RECEIVED SALTINE CRACKERS AND GRAHAMS CRACKERS WITH PEANUT BUTTER.NO STOOL NOTED SINCE SHIFT CHANGE.PT'S TEMP AT HS WAS 100.3,TYLENOL ADMINISTERED.PT ENCOURAGED TO DRINK MORE PO FLUIDS.URINAL AT BEDSIDE.PT RESTING ON HIS BED AT THIS TIME.FALL AND ISOLATION PRECAUTIONS IN PLACE,CALL LIGHT WITHIN REACH.
[2020-01-01 04:23] VITALS: BP 112/64
[2020-01-01 08:10] LABS: CALCIUM 8.1 mg/dL (8.5-10.1); CREATININE 1.4 mg/dL (0.7-1.3); POTASSIUM 4.4 mmol/L (3.5-5.1)
[2020-01-01 08:30] VITALS: BP 116/67
--- NOTE | 2020-01-01 15:17 | NUR ---
Physician indicated that we are awaiting preliminary path report. Nephrology was consulted. [facility] is able to accept pt once medically stable. No weekend dishcarge anticpated. CM to follow as indicted with dc planning.
[2020-01-01 16:30] VITALS: BP 116/68
--- NOTE | 2020-01-01 19:52 | NUR ---
ASSUMED CARE OF PATIENT AT 0715, PATIENT ALERT AND ORIENTED X 3, PATIENT DENIES PAIN THIS SHIFT. PATIENT WEAK, UP WITH ASSIST X 2 WITH GB AND WALKER. PATIENT ASSISTED UP TO THE RECLINER BY PT. PATIENT ASSISTED BACK TO BED BY THIS RN AND ROBERT/RN. C-DIFF STOOL COLLECTED AND SENT TO THE LAB. ISOLATION PENDING RESULTS. DR ROBERTO HERE THIS AFTERNOON, NEW CONSULT CALLED FOR NEPHROLOGY/DR HILL RETURNED THE CALL, WILL SEE PATIENT TOMORROW. IV FLUIDS STARTED NS AT 100/HR, LOW SODIUM. PATIENT HAS LEFT FOREARM IV IN PLACE. WILL CONTINUE TO MONITOR.
[2020-01-01 21:25] VITALS: BP 118/57
--- NOTE | 2020-01-02 00:19 | NUR ---
PT SLEEPING DURING ASSESSMENT, NOTED TO AWAKEN TO NAME. PT HARD OF HEARING, HEARING AIDE MACHINE AT BEDSIDE. PT NOT SHOWING SIGNS OF PAIN, DISCOMFORT, OR SOB, FLACC SCORE OF 0. PT REFUSING OTIC ANTIBIOTIC HE REPORTS 'I DONT TAKE THOSE ANYMORE' PT OBSERVED REPOSITIONING INDEPENDENTLY WHILE IN BED. REDNESS NOTED TO COCCYX, BARRIER CREAM APPLIED. PT TOLERATING PO INTAKE OF FLUIDS AND CARB CONTROLLED DIET WITH FLUID RESTRICTION OF 1000ML. PT ROOM REMAINS NEAR NURSES STATION. ENCOURAGED PT TO NOTIFY STAFF FOR ALL NEEDS. CALL LIGHT WITHIN REACH, BED ALARM ON, BED IN LOWEST POSITION. WILL CONTINUE TO MONITOR.
[2020-01-02 05:00] VITALS: BP 113/59
[2020-01-02 05:19] LABS: ABSOLUTE NEUTROPHILS 9.5 thou/uL (1.4-8.2); HEMATOCRIT 24.7 % (42.0-52.0); HEMOGLOBIN 7.9 gm/dL (14.0-18.0); LYMPHOCYTES 8.5 % (24.0-44.0); MCH 24.1 pg (26.0-34.0); MCHC 32.1 g/dL (28.0-37.0); MONOCYTES 1.5 % (1.0-8.0); PLATELET COUNT 478 thou/uL (150-400); RBC 3.29 mil/uL (4.50-6.00); RDW 20.3 % (10.5-14.5); WBC 10.6 thou/uL (4.0-11.0)
[2020-01-02 05:41] LABS: CREATININE 1.3 mg/dL (0.7-1.3)
[2020-01-02 08:00] VITALS: BP 108/54
[2020-01-02 16:20] VITALS: BP 106/51
--- NOTE | 2020-01-02 16:24 | NUR ---
VSS-AFEBRILE. NO C/O PAIN THIS SHIFT. CDIFF TEST NEGATIVE, REMOVED FROM ISOLATION PRECAUTIONS. FAIR APPETITE, VERY LITTLE ORAL FLUIDS CONSUMED, STAYED WELL WITHIN DAILY FLUID RESTRICTION OF 1000ML. REFUSED EVERY TWO HOUR TURNS, WAS ABLE TO OCCASIONALLY USE PILLOWS FOR ALTERNATIVE POSITIONING. INCONTINET OF BLADDER TWICE, 1 EPISODE OF DIARRHEA. FALL PRECAUTIONS IN PLACE, CALLS APPROPRIATELY FOR ANY NEEDED ASSISTANCE.
[2020-01-02 20:45] VITALS: BP 112/61
--- NOTE | 2020-01-03 02:42 | NUR ---
ASSUMED PT CARE AT 1900. PT REPORTS NO PAIN. LOOSE STOOLS TONIGHT. PT REFUSED EAR DROPS - STATES HE DOES NOT NEED THEM ANYMORE. FLUIDS INFUSING PER ORDER. PT IS MUCH UNDER FLUID RESTRICTION TONIGHT. VSS. SLEPT MOST OF SHIFT. MORE TALKATIVE THIS EVENING, WAS JOKING AROUND WIH THIS NURSE. SEEMS IN A BIT OF HIGHER SPIRITS. WILL CONTINUE TO MONITOR THROUGHOUT THE NIGHT.
[2020-01-03 04:37] LABS: ALBUMIN 1.4 g/dL (3.4-5.0); CALCIUM 7.6 mg/dL (8.5-10.1); CREATININE 1.3 mg/dL (0.7-1.3); PHOSPHORUS 2.8 mg/dL (2.5-4.9); POTASSIUM 4.9 mmol/L (3.5-5.1)
[2020-01-03 04:50] VITALS: BP 117/66
[2020-01-03 07:35] VITALS: BP 107/54
[2020-01-03 14:50] VITALS: BP 111/53
--- NOTE | 2020-01-03 15:25 | NUR ---
PT A&OX4. IV INTACT IN L FA INFUSING NS@100 MLS/HR. PT WAS INCONT OF LOOSE STOOL TODAY X1. PT ATE 50% OF BREAKFAST AND 25% LUNCH. PT DOES USE URINAL. DENIES PAIN. PT DENIES NEED TO UPDATE BROTHER MIGUELITO. WILL CONT POC.
[2020-01-03 20:20] VITALS: BP 114/53
[2020-01-04 03:15] VITALS: BP 110/62
--- NOTE | 2020-01-04 03:39 | NUR ---
ASSESSED AT START OF SHIFT PT A&OX4 [place] AND HAS A BOX AMPLIFIER. IV INTACT AND FLUIDS INFUISING. URINAL AT BEDSIDE. NO EPISODE OF DIARRHEA THIS SHIFT. REFUSED NIGHT TIME EAR DROPS STATES DOESN'T NEED IT ANYMORE EDUCATION PROVIDED. PT CALM AND RESTING WELL TONIGHT. FALL PREC IN PLACE AND WILL CONT WITH POC TILL EOS.
[2020-01-04 06:00] LABS: HEMATOCRIT 25.4 % (42.0-52.0); HEMOGLOBIN 8.1 gm/dL (14.0-18.0); MCH 24.6 pg (26.0-34.0); MCV 76.8 fL (80.0-100.0); RBC 3.31 mil/uL (4.50-6.00); WBC 12.7 thou/uL (4.0-11.0)
[2020-01-04 06:14] LABS: PLATELET COUNT 390 thou/uL (150-400)
[2020-01-04 06:24] LABS: ALBUMIN 1.4 g/dL (3.4-5.0); ANION GAP 9 mmol/L (7-16); BUN 28 mg/dL (7-18); CALCIUM 7.7 mg/dL (8.5-10.1); CHLORIDE 102 mmol/L (98-107); CO2 20 mmol/L (21-32); CREATININE 1.2 mg/dL (0.7-1.3); GLUCOSE 149 mg/dL (74-106); LIPASE 339 U/L (73-393); POTASSIUM 5.1 mmol/L (3.5-5.1); SGOT 56 U/L (15-37); SGPT 28 U/L (30-65); SODIUM 131 mmol/L (136-145); TOTAL BILIRUBIN < 0.1 mg/dL (<0.1-1.0); TOTAL PROTEIN 6.8 g/dL (6.4-8.2)
--- NOTE | 2020-01-04 07:21 | HC ---
[facility] [place] [address] CONSULTATION Name: JORGITO GIBSON Room #: 445-P ADM IN M.R.#: [id number] Admission: 12/18/19 Attend Phys: Chemo Lopez MD Discharge: Date of : 45 Report #: [id number] THIS REPORT FOR: cc: Chemo Lopez MD,Romeo Champion MD, MD ~ CC: Chemo Lopez DATE OF SERVICE: 01/02/2020 NEPHROLOGY CONSULTATION REASON FOR CONSULTATION: Hyponatremia. HISTORY OF PRESENT ILLNESS: This is a 74-year-old male who came into the hospital a little over 2 weeks ago. He came in with weakness and falling. He has a history of HIV, which was diagnosed within the past year and he has been on antiretroviral therapy under the care of Dr. Jarod Lopez. The patient is not a very good historian. He came in because of weakness and falling. He has been losing a lot of weight. Appetite has been down. 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 He also has had some CT scans, which have shown some adenopathy, bilateral nodules on his adrenal glands, and a mass in the neighborhood of the pancreas. He had biopsies done, which were nondiagnostic of some of the adenopathy. He went to [facility] to have evaluation done of the pancreas. So far no definitive diagnosis has been made. He has also been extremely anemic with a microcytic anemia. The final report from the biopsy of his pancreatic area is still pending. We are asked to see the patient for hyponatremia. The patient is unaware of previous low serum sodium levels. On admission, his serum sodium was low at 130, it is ranged between 122 and 126 since that time. He has had no edema. He states his appetite has been down. He has been losing weight, although he cannot tell me how much. He did have a TSH checked, which was normal at 2.29. His admitting urinalysis showed a specific gravity 1.010. Again, he was hyponatremic at that time. A spot urine sodium as well as a urine osmolality were sent to the lab, but are pending at this time. The patient has not had any edema. ADMITTING MEDICATIONS: Showed some paroxetine, metformin, small dose of lisinopril, which has since been stopped, atorvastatin, omeprazole, colchicine, Bactrim, vitamin B12, trazodone, tamsulosin, Robaxin, Cipro, metoprolol, aspirin, inhaler and some Augmentin as well as some Nexium. PAST MEDICAL HISTORY: The patient was diagnosed with HIV within the past year. He is on antiretroviral therapy. He has a history of coronary artery disease as [facility] [address] [place] [address] CONSULTATION Name: JORGITO GIBSON Room #: 445-P ADM IN M.R.#: [id number] Admission: 12/18/19 Attend Phys: Chemo Lopez MD Discharge: Date of : 45 Report #: [id number] well as diabetes and hypertension. ALLERGIES: No known medical allergies. REVIEW OF SYSTEMS: Has not been eating much. Again, he knows he has lost weight, but he is uncertain how much. He says he has been passing urine. He says he is thirsty and try to keep up on his fluid intake. No current diarrhea. Denies dyspnea or cough. PHYSICAL EXAMINATION: GENERAL: Frail, elderly, cachectic-appearing male. He is lethargic, but awake. VITAL SIGNS: Blood pressure 113/59, heart rate 67, respiratory rate 18, oxygen saturation 98%, temperature 36.3 degrees centigrade. HEENT: Shows pupils are equal and reactive. Sclerae nonicteric. Oral mucosa is dry. NECK: Veins are not distended. Neck is supple. CHEST: Clear bilaterally. HEART: Has a regular rate and rhythm. ABDOMEN: Scaphoid, has bowel sounds present. It is soft and nontender at this time. I am unable to palpate organomegaly or masses. EXTREMITIES: Show no peripheral edema. He has diminished peripheral pulses. He has also diminished skin turgor, both in upper extremities and lower extremities. LABORATORY DATA: From yesterday, sodium 123, today 125, potassium 4.4, chloride 98, bicarbonate 24, BUN 25, creatinine 1.4, glucose 107, calcium 8.1. Most recently, his total protein was 8.4 with an albumin of 1.6. Again, the immunoelectrophoresis showed a polyclonal gammopathy. Hemoglobin 7.9, hematocrit 24.7 with an MCV of 75. White count 10.6, platelets 478,000. Urinalysis on admission was otherwise unremarkable. ASSESSMENT: 1. Hyponatremia. This is an adult gentleman with poor solute intake. He is volume deplete on exam. He has decreased skin turgor. Blood pressure is low. He has been taken off of his antihypertensive medications. I cannot tell how much weight he has lost, but I think this is a combination of volume related hyponatremia as well as poor solute intake. He has been started on some dexamethasone. He has also been put on some IV normal saline. Sodium level is slightly higher today and it should continue to come up with those therapies. We will await his urine osmolality checked. We will recheck chemistries tomorrow, but I do not think he will need any other intervention at this time. 2. Weight loss with a combination of human immunodeficiency virus diagnosed in the past year as well as these nodules which are nondiagnostic at this point of his workup. 3. History of hypertension, now blood pressure on the low side. His antihypertensives have been appropriately stopped. [facility] [address] [place] [address] CONSULTATION Name: JORGITO GIBSON Room #: 445-P ADM IN .R.#: [id number] Admission: 12/18/19 Attend Phys: Chemo Lopez MD Discharge: Date of : 45 Report #: [id number] 4. Pancreatic enlargement, retroperitoneal adenopathy, and bilateral adrenal nodules. All that has been described on previous CT scan and biopsy has been nondiagnostic so far. Awaiting the final pancreatic biopsy. PLAN: 1. For now, continue his IV normal saline. 2. Recheck labs in the morning. 3. We will follow along the care of this patient. <ELECTRONICALLY SIGNED> By: Romeo Quigley MD 01/04/20 0721 [id number] [id number] Romeo Quigley MD /nt
[2020-01-04 08:13] VITALS: BP 118/60
[2020-01-04 10:39] LABS: ABSOLUTE NEUTROPHILS 11.7 thou/uL (1.4-8.2); ANISOCYTOSIS 2+; MYELOCYTES 1 %
--- NOTE | 2020-01-04 10:41 | HC ---
[facility] [place] [address] CONSULTATION Name: JORGITO GIBSON Room #: 445-P ADM IN M.R.#: [id number] Admission: 12/18/19 Attend Phys: Chemo Lopez MD Discharge: Date of : 45 Report #: [id number] THIS REPORT FOR: cc: Chemo Lopez MD,Carson Franklin MD, MD ~ CC: Chemo Lopez DATE OF SERVICE: 12/22/2019 HISTORY OF PRESENT ILLNESS: This is a 74-year-old male patient who is very difficult to evaluate because the patient is very hard of hearing. I called Dr. Lopez and discussed the patient with him and got some of the history from the patient's records. The patient has generalized weakness. There is no focality to it. He is unable to tell me how long it is going on, but it is a long process. He did have a CT of the abdomen, which demonstrated multiple problems in the CT of the abdomen. He has a known HIV. He has a history of depression and even now it looks he is depressed on my examination. He is markedly anemic, and his sed rate is very high. REVIEW OF SYSTEMS: Positive for multiple problems. He has HIV and he is very hard of hearing, even after using assistive devices. He is markedly anemic. PAST MEDICAL HISTORY: Positive for HIV. FAMILY HISTORY: Unavailable. SOCIAL HISTORY: He cannot tell me anything more. He does apparently has some history of anxiety. When I asked him, does he drinks alcohol he says no. Patient's examination indicates he is alert. I am not able to do a good neurological examination on him and mental status examination on him because he is not able to hear things. He did tell me it is November. He is very apathetic and looks depressed. The best I can tell his cranial nerve examination is unremarkable. He is weak in all 4 extremities, but he can move. His reflexes are present. His position sense is intact on both sides. His reflexes can be elicited even in the lower extremities. He did not cooperate with the fundus examination. His blood pressure is 124/63, it does go low to about 108. LABORATORY DATA: Positive for anemia and his abdominal CT demonstrate multiple abnormalities. IMPRESSION: Difficult to tell in this patient. One of the etiologies of generalized weakness is anemia but his sed rate is very high. He has multiple [facility] [address] [place] [address] CONSULTATION Name: JORGITO GIBSON Room #: 445-P ADM IN M.R.#: [id number] Admission: 12/18/19 Attend Phys: Chemo Lopez MD Discharge: Date of : 45 Report #: [id number] Lopez is working him up for any underlying malignancy, which can cause perineoplastic process. We will see what that workup show. I will send some workup to look for generalized weakness, but if no malignancy is found, he will need some more workup including imaging study of the brain and maybe of the spine. Before doing any further testing, we will see what the workup by Dr. Lopez shows. Thank you very much for this referral. More than 50 minutes of time was spent taking care of this patient today and majority of that time was spent counseling and coordinating. <ELECTRONICALLY SIGNED> By: Carson Stewart MD 01/04/20 1041 [id number] Carson Stewart MD /nt
--- NOTE | 2020-01-04 17:47 | NUR ---
ASSUMED CARE OF THE PT AT 0700. PT IS ON BEDREST AND REFUSED PT/OT AND TO SIT IN THE CHAIR. PT HAS NOT HAD ANY LOOSE STOOLS TODAY. PT REFUSED ACCUCHEKS, SCD'S AND METFORMIN. PT HAS BEEN RUNNING A FEVER, MEDS GIVEN, SEE EMAR. PT HAS RECIEVED IG THERAPY, SEE EMAR, TOLERATED WELL. L FOREARM DRY AND INTACT. PT CAN TURN SELF IN BED, USE BEDPAN OR URINAL ON OWN. FALL RPECAUTIONS IN PLACE, BED IN THE LOWEST POSITION AND CALL LIGHT IS WITHIN REACH. WILL CONTINUE TO MONITOR THE PT.
[2020-01-04 19:22] VITALS: BP 104/57
[2020-01-04 19:35] VITALS: BP 130/68
--- NOTE | 2020-01-05 01:08 | NUR ---
ASSESSED AT START OF SHIFT PT RESTING IN BED. IVIG THERAPY INFUISING. PT HAD A TEMP OF 100.2 TYLENOL GIVEN REASSESSEMENT TEMP NOW 98.6. WILL CONT TO MONITOR. PT TURNS SELF IN BED AND URINAL AT BEDSIDE. NO STOOLS THIS SHIFT. REFUSED NIGHT TIME EAR DROP STATES DOESN'T NEED IT. FALL PREQ IN PLACE AND CALL LIGHT IN REACH WILL CONT TO MONITOR.
[2020-01-05 04:20] VITALS: BP 116/56
[2020-01-05 06:08] LABS: ALBUMIN 1.3 g/dL (3.4-5.0); CALCIUM 7.5 mg/dL (8.5-10.1); CREATININE 1.3 mg/dL (0.7-1.3); POTASSIUM 4.5 mmol/L (3.5-5.1)
--- NOTE | 2020-01-05 17:24 | NUR ---
PT ASSESSED AT START OF SHIFT. HE IS VERY WEAK AND LETHARGIC. VERY [place] BUT HAS HEARING AID AND STATES HE CAN HEAR US. ATE SM AMTS AT MEALS. DID FEED HIMSELF BKFT BUT UNABLE TO FEED LUNCH AND DECLINED HELP FROM STAFF. TAKING MEDS W/ SIPS WATER AND SWALLOWING FINE. UNABLE TO HOLD HIMSELF UPRIGHT ON SIDE OF BED SO THERAPY DID NOT GET PT UP. UPDATE GIVEN TO DR. ROBERTO WHEN HERE. WILL CONTINUE TO MONITOR.
[2020-01-05 20:45] VITALS: BP 114/47
--- NOTE | 2020-01-06 01:12 | NUR ---
ASSESSED AT START OF SHIFT PT IN BED RESTING. IV INTACT AND FLUIDS INFUISING. ON ASSESSEMENT [place], CLEAR LUNGS SOUNDS. TOLERATES PO MEDS FINE WITH SIPS OF WATER. TYLENOL GIVEN FOR TEMP AND BED BATH PROVIDED THIS SHIFT. PT INCONTINENT AND WEAK. Q2 TURNS DONE. FALL PREC IN PLACE AND WILL CONT TILL EOS.
[2020-01-06 03:48] VITALS: BP 107/54
[2020-01-06 05:49] LABS: ABSOLUTE NEUTROPHILS 14.7 thou/uL (1.4-8.2); HEMATOCRIT 25.3 % (42.0-52.0); LYMPHOCYTES 9.4 % (24.0-44.0); MCH 24.1 pg (26.0-34.0); MCHC 31.8 g/dL (28.0-37.0); MCV 75.7 fL (80.0-100.0); MONOCYTES 5.1 % (1.0-8.0); POLYS 85.5 % (36.0-66.0); RBC 3.34 mil/uL (4.50-6.00); RDW 21.4 % (10.5-14.5); WBC 17.2 thou/uL (4.0-11.0)
[2020-01-06 05:50] LABS: PLATELET COUNT 248 thou/uL (150-400)
[2020-01-06 06:09] LABS: ALBUMIN 1.4 g/dL (3.4-5.0); CALCIUM 7.5 mg/dL (8.5-10.1); CREATININE 1.3 mg/dL (0.7-1.3); POTASSIUM 4.4 mmol/L (3.5-5.1); TOTAL BILIRUBIN 0.4 mg/dL (<0.1-1.0); TOTAL PROTEIN 7.6 g/dL (6.4-8.2)
[2020-01-06 07:30] VITALS: BP 122/60
--- NOTE | 2020-01-06 07:46 | NUR ---
PT RESTING IN BED IS LITTLE TRAVERSE AND IS WEAK. NO PAIN AT PRESENT. IV LEFT AC WITH FLUIDS INFUSING ORDERED.
--- NOTE | 2020-01-06 13:25 | NUR ---
Day 1 calorie count met 36% calorie needs and 28% protein needs. Requires much encouragement to eat. Receptive of magic cups. Day 2 results available on 01/06.
[2020-01-06 15:57] VITALS: BP 113/61
[2020-01-06 19:21] VITALS: BP 113/57
--- NOTE | 2020-01-06 19:36 | NUR ---
CALLED AND GAVE REPORT TO PATIENT'S BROTHER, BROTHER STATES HE ENCOURAGES PATIENT BUT DOES NOT MAKE HIS DECISIONS. THIS NURSE AND BROTHER SPOKE ABOUT PATIENT AND HIS HISTORY FOR APPROX 20- 30 MIN
--- NOTE | 2020-01-06 23:26 | NUR ---
PT AWAKE, AOX2, SELF AND SITUATION. PT REPORTS PAIN IN RIGHT KNEE WITH TACTILE STIMULATION, ACTIVITY, AND MOVEMENT. PT DENIES PAIN AT REST. PT CONTINUES TO REST IN BED WITH FREQUENT REPOSITIONING ENCOURAGED. PT TOLERATING PO INTAKE OF FLUIDS AND CARB CONTROLLED DIET, CONTINUES WITH CALORIE COUNT AND 1000ML FLUID RESTRICTION. PT CONTINUES TO USE AMPLIFIER TO HEAR FOR COMMUNICATION PURPOSES. ENCOURAGED PT TO NOTIFY STAFF FOR ALL NEEDS. CALL LIGHT WITHIN REACH, PT ROOM ACROSS FROM NURSES STATION, BED ALARM ON, BED IN LOWEST POSITION. WILL CONTINUE TO MONITOR.
[2020-01-07 04:28] VITALS: BP 127/71
[2020-01-07 08:55] VITALS: BP 139/78
[2020-01-07 15:06] VITALS: BP 123/56
--- NOTE | 2020-01-07 15:13 | NUR ---
PT CARE ASSUMED AT 0700.A&Ox2.PT MORE LETHARGIC THEN IN THE PAST AND HAS BEEN HAVING TEMPERATURES RANGING FROM 99.1 TO 101.7 TREATED WITH TYLENOL. AFTER SPEAKING WITH DR. ROBERTO THE FLUID RESTRICTION AND CALORIC INTAKE COUNT TO BE DISCONTINUED. PET SCAN AND EMG TO BE DONE OUTPATIENT. MRI SCHEDULED FOR THE AM, CONSENT ALREADY FAXED. BONE BIOPSY ORDERED WITH IR AWAITING A CALL BACK WITH APPOINTMENT. INTICIPATED PROCEDURE TOMORROW. IV INFILTRATED NEW IV PLACED BY IV TEAM. FLUIDS INFUSING. TB TEST PLACED ON R.FOREARM THIS NEEDS TO READ IN 48HRS (01/08) PER DR. ROBERTO NG TUBE WAS TO BE PLACED. NG TUBED PLACED WITHOUT ANY INCIDENT AND VERIFIED. PLACEMENT GOOD TO BE USED. TUBEFEEDING TO BE MONITORED BY DIETARY. GLUCERNA AT A STARTING RATE OF 25ML/HR WITH A GOAL OF 5OML/HR. ACHS WITH SS IN PLACE TO MONITOR TUBE FEEDINGS. PT IS HAVING A HARD TIME FOLLOWING COMMANDS TO TAKE HIS MEDICATIONS AND HAD TO HAVE HIS MEDICATIONS PLACED FOR HIM IN HIS MOUTH. PT VERY WEAK AND NOT ABLE TO USE URINAL ANYMORE AND HAS BECOME INCONTINENT. FALL RISK PROTOCOL IN PLACE. WILL CONTINUE TO MONITOR.
--- NOTE | 2020-01-07 15:32 | NUR ---
FAXED CLINICAL UPDATE TO [facility] RECEIVED CONFIRMATION AND LEFT MSG WITH BENY IN ADM. DP TO FOLLOW.
[2020-01-07 17:16] LABS: HEMATOCRIT 23.2 % (42.0-52.0); HEMOGLOBIN 7.6 gm/dL (14.0-18.0); MCH 24.2 pg (26.0-34.0); MCHC 32.6 g/dL (28.0-37.0); MCV 74.2 fL (80.0-100.0); RBC 3.13 mil/uL (4.50-6.00); RDW 21.2 % (10.5-14.5); WBC 15.1 thou/uL (4.0-11.0)
[2020-01-07 17:28] LABS: CALCIUM 7.6 mg/dL (8.5-10.1); CREATININE 1.1 mg/dL (0.7-1.3); POTASSIUM 4.1 mmol/L (3.5-5.1)
[2020-01-07 19:13] VITALS: BP 124/67
--- NOTE | 2020-01-07 19:45 | NUR ---
CALLED BROTHER TO GIVE UPDATE. TOLD OF CURREBNT CONDITION, NG PLACEMENT AND TEST FOR TOMORROW.
--- NOTE | 2020-01-08 02:13 | NUR ---
RECIEVED CARE OF THIS PATIENT AT 1900. AT BEGINNING OF SHIFT PATIENT DID NOT SPEAK. DID SEEM TO UNDERSTAND WHAT WAS TOLD TO HIM BECAUSE HE DID FOLLOW COMMANDS. NG IN L NARE AT THE 64CM LIZA. GLUCERNA WAS GOING AT 25ML/HR UNTIL MN. FEEDING TURNED OFF D/T A PROCEDURE IN AM. HAD A RESIDUAKL OF 80ML AROUND 2100. ACCUCHECK WAS 98 AT MN. IV PATENT WITH FLUIDS INFUSING. A COUPLE OF HOURS INTO THE SHIFT PATIENT BEGAN TO SPEAK MORE. PATIENT ORIENTED TO SELF AND SITUATION. BROTHER WAS CALLED BEGINNING OF SHIFT AND GIVEN AN UPDATE. PATIENT REMAINS ON BEDREST. SLEPT OFF AND ON DURING NIGHT.
[2020-01-08 04:39] LABS: INR 1.1; PROTIME 11.7 Seconds (9.3-11.4)
[2020-01-08 04:46] LABS: ALBUMIN 1.2 g/dL (3.4-5.0); CALCIUM 7.4 mg/dL (8.5-10.1); PHOSPHORUS 2.2 mg/dL (2.5-4.9); POTASSIUM 3.9 mmol/L (3.5-5.1)
[2020-01-08 05:09] LABS: HEP B SURFACE Ab(ANTI-HBS Reactive (()); HEPATITIS B SURFACE AG Negative (Negative); HEPATITIS C VIRUS AB 0.4 (0.0-0.9)
[2020-01-08 07:55] VITALS: BP 129/62
--- NOTE | 2020-01-08 08:04 | NUR ---
PT LEFT UNIT AT THIS TIME FOR MRI W/O CONTRAST. PT CLEAN AND VS TAKEN WNL SEE CHART. PT W/O PAIN OR RESP DISTRESS. HAS REMAINED NPO. NG INTACT. TUBE FEEDING ON HOLD. PT USED URINAL BEFORE TRANSFER. PT IS PLEASANT AND COOPERATIVE WITH CARE.
--- NOTE | 2020-01-08 10:38 | NUR ---
PT LEFT UNIT AT THIS TIME , TO HAVE BONE MARROW TEST. NO PAIN OR RESP DISTRESS AT TIME OF TRANSFER.DR ROBERTO HERE TO SEE PATIENT EARLIER THIS AM. PT TOLD P.T/ THERAPY EARLIER THAT HE DID NOT WANT TO WORK WITH THEM TODAY.
[2020-01-08 12:00] VITALS: BP 117/70
--- NOTE | 2020-01-08 12:12 | NUR ---
PATIENT RETURNED FROM HAVING BONE MARROW TEST. V.S 98.7 18 92 117/70 O2 SAT 95 % RA. BED WITH HEAD OF BED UP 20 DEGREES. PT SLEEPING NO PAIN OR RESP DISTRESS,
[2020-01-08 13:15] LABS: CSF GLUCOSE 53 mg/dL (40-70); CSF PROTEIN 99 mg/dL (15-45)
--- NOTE | 2020-01-08 13:40 | NUR ---
ON-GOING ASSESSMENT: AWAITING FINAL PATH REPORT ON PATIENT. POSSIBLE B CELL LYMPHOMA, ESR VERY HIGH. NEED TO ESTABLISH DIAGNOSIS BEFORE CONSIDERING TREATMENT FOR LYMPHOMA. PT IS TO HAVE MRI, BONE MARROW BIPOSY AND LP TODAY. PT STARTED ON TUBE FEEDS BUT BEDSIDE RN REPORTS HE DID NOT TOLERATE THEM WELL YESTERDAY AND TRYING AGAIN TODAY. [facility] IS FOLLOWING PATIENT PENDING PROGRESSING AND DIAGNOSIS. INCINERATOR PLANT SUPERVISOR CONTINUES TO UPDATE THEM. NO PLANS FOR WEEKEND DISCHARGE. CM WILL CONTINUE TO FOLLOW TO ASSIST NEDED.
[2020-01-08 14:00] VITALS: BP 122/68
[2020-01-08 14:51] LABS: CSF CLARITY HAZY; CSF COLOR PINK; CSF RBC 5158 /mm3; CSF WBC 10 /mm3 (0-10); VOLUME 12.5 ml
[2020-01-08 15:17] LABS: CSF LYMPHOCYTES 20 %; CSF MONOCYTES 3; CSF POLYS 77; CSF POLYS 77 %
--- NOTE | 2020-01-08 19:36 | NUR ---
CALLED PATIENT'S BROTHER MIGUELITO AND GAVE HIM UPDATE.
[2020-01-08 19:45] VITALS: BP 128/61
[2020-01-09 05:00] VITALS: BP 128/63
--- NOTE | 2020-01-09 05:27 | NUR ---
RECIEVED CARE OF THIS PATIENT AT 1900. PATIENT ALERT AND ORIENTED TO SELF ONLY. HAD NG TUBE FIRST OF SHIFT. NURSE FROM ED CAME AND REPLACED WITH A DOBBHOFF. X-RAY TAKEN AND WAS FOUND TO BE IN THE RIGHT PLACE. PATIENT TOLERATED PROCEDURE WELL. PATIENT KEEPS PUTTING HIS HEAD DOWN TO THE FLAT POSITION. EDUCATED HIM SEVERAL TIMES THAT THE HEAD NEEDS TO STAY UP OR HE COULD CHOKE ON THE TUBE FEEDING. IV IN L WRIST WITH FLUIDS INFUSING. SLEPT OFF AND ON DURING SHIFT. DENIES PAIN.
[2020-01-09 07:14] VITALS: BP 140/60
--- NOTE | 2020-01-09 07:29 | NUR ---
ASUMMED CARE OF PATIENT. HE IS RESTING IN BED DUBHOFF IN PLACE INFUSING TUBE FEEDING ORDERED. NO PAIN OR RESP DISTRESS AT THIS TIME.
--- NOTE | 2020-01-09 17:29 | NUR ---
CALLED PATIENT'S BROTHER MIGUELITO UPDATED HIM ON PATIENT.
[2020-01-09 18:14] VITALS: BP 121/55
--- NOTE | 2020-01-09 20:18 | NUR ---
PT STATES HAS HEARTBURN AND FEELS SICK TUBE FEEDING OFF AND ZOFRAN GIVEN.
[2020-01-09 20:35] VITALS: BP 124/66
[2020-01-10 04:50] VITALS: BP 121/59
--- NOTE | 2020-01-10 05:11 | NUR ---
ASSUMED PT CARE AT 1900. PT C/O OF INDIGESTION/NAUSEA, TUBE FEEDING PAUSE FOR ABOUT 30 MINS, RESTARTED - NO COMPLAINTS SINCE. REPORTS HEADACHE, TYLENOL GIVEN. TWO LOOSE STOOLS OVERNIGHT. PT ABLE TO USE URINAL, BUT INCONTINENT OF BOWEL. VSS. WEAK. FLUIDS INFUSING. SLEPT MOST OF NIGHT.
[2020-01-10 07:29] VITALS: BP 122/58
[2020-01-10 07:42] LABS: CREATININE 1.2 mg/dL (0.7-1.3); POTASSIUM 3.5 mmol/L (3.5-5.1)
[2020-01-10 13:37] LABS: CHOLESTEROL 54 mg/dL (<200); HDL CHOLESTEROL 8 mg/dL (>40); LDL CHOLESTEROL 25 mg/dL (<100); TC:HDL 6.8 Ratio (Not establshd); TRIGLYCERIDE 107 mg/dL (<150); VLDL 21 mg/dL (<40)
--- NOTE | 2020-01-10 18:42 | NUR ---
ASSUMED PATIENT CARE AT 0730. aLERT X ORIENTED. TUBE FEEDING INFUSING ORDERED. RESTING IN BED. DENIES PAIN OR DISTRESS. IV ON LF.WRIST INFUSING NS. US CAROTID DID TODAY, MILD PLAQUES IN CAROTID BULB NOTED. INCREASED BUN.REDNESS ON THE BUTTOCK AREA, NOT OPEN. FALL PRECAUTION IN PLACE. CALL LIGHT IN REACH.
[2020-01-10 21:00] VITALS: BP 111/61
[2020-01-11 04:05] VITALS: BP 121/71
--- NOTE | 2020-01-11 07:28 | NUR ---
LITTLE SHELL TRIBE.MAKES NEEDS KNOWN IN A SOFT FRAIL VOICE. REQUIRES TOTAL HELP WITH REPOSITIONING. USES URINAL BUT WILL SOMETIMES BE INCONTINENT.PT SWALLOWS MEDS OKAY. CONTINUES ON GLUCERNA 1.2 @25/HR.HE C/O NAUSEA AND ACID REFLUX AT ONE TIME. GIVEN ZOFRAN WITH RELIEF. BEEN AFEBRILE.
[2020-01-11 07:51] VITALS: BP 110/51
--- NOTE | 2020-01-11 09:44 | NUR ---
Change tube feed recommendations. Suggest glucerna 1.2 to run 7p-7a (12hrs) at 80ml/hr to allow for oral intake as tolerated during day. Please verify if pt needs to continue on 1000ml oral fluid restriction.
[2020-01-11 13:08] LABS: CSF VDRL Non Reactive (Non Rea:<1:1)
[2020-01-11 15:43] VITALS: BP 116/64
--- NOTE | 2020-01-11 16:35 | NUR ---
PT A&OX3-4. LETHARGIC. DOBHOFF INFUSING TUBE FEEDS AT 45ML / HR GOAL WAS TO REACH 50. THIS NURSE STARTED INCREASING TUBE FEEDING RATE FROM 25 ML/HR IN 10 ML INCREAMENTS. NEW ORDER SUGGESTION TO START TUBE FEEDS FROM 7PM-7AM TO ALLOW FOR ORAL INTAKE. PT IS ON A 1000 ML FLUID RESTRICTION. PT WAS USING A URINAL THOUGH NOW IS INCONT. PT'S BILAT LOWER EXTREMITIES ARE SWOLLEN WITH SOME PITTING EDEMA. WILL CONT POC.
[2020-01-11 19:32] VITALS: BP 103/50
[2020-01-12] VITALS (62 sets, daily range): BP systolic 67–129; BP diastolic 34–70
--- NOTE | 2020-01-12 03:08 | NUR ---
ASSESSED AT START OF SHIFT 0. PT RESTING IN BED, INUPIAT, SIMPLY QUESTIONS ASKED AND GESTURES USED. TUBE FEEDING INFUISING @80/HR. PT INCONTINENT OF URINE. Q2 TURNS DONE FREQUENTLY. PT C/O NAUSEA ZOFRAN GIVEN FOR RELIEF. EMESISX1 NOTED. TUBE FEEDING REDUCED TO 50/HR. PO FLUIDS GIVEN WITH MEDS AND PT RUSSEL IT WELL. FALL PREQ IN PLACE AND CALL LIGHT IN REACH WILL CONT WITH POC TILL EOS.
[2020-01-12 05:14] LABS: HEMATOCRIT 24.1 % (42.0-52.0); HEMOGLOBIN 7.8 gm/dL (14.0-18.0); MCH 24.6 pg (26.0-34.0); MCHC 32.4 g/dL (28.0-37.0); MCV 75.9 fL (80.0-100.0); PLATELET COUNT 207 thou/uL (150-400); RBC 3.17 mil/uL (4.50-6.00); RDW 22.5 % (10.5-14.5)
[2020-01-12 05:38] LABS: CALCIUM 7.1 mg/dL (8.5-10.1); CREATININE 1.4 mg/dL (0.7-1.3); TOTAL BILIRUBIN 0.5 mg/dL (<0.1-1.0)
[2020-01-12 05:57] LABS: BE(vivo) -10.4 mmol/L (-2 to +3); HCO3 13.8 mmol/L (22.0-26.0); PCO2 25.1 mmHg (35.0-45.0); PO2 79.6 mmHg (80.0-100.0); pH 7.359 (7.360-7.450); sO2 95.6 % (92.0-98.0)
[2020-01-12 07:34] LABS: ABSOLUTE NEUTROPHILS 18.1 thou/uL (1.4-8.2)
[2020-01-12 07:35] LABS: ANISOCYTOSIS 3+
[2020-01-12 07:59] LABS: HEMATOCRIT 29.6 % (42.0-52.0); HEMOGLOBIN 9.3 gm/dL (14.0-18.0); MCH 24.3 pg (26.0-34.0); MCHC 31.4 g/dL (28.0-37.0); MCV 77.5 fL (80.0-100.0); RBC 3.82 mil/uL (4.50-6.00); RDW 22.8 % (10.5-14.5); WBC 19.2 thou/uL (4.0-11.0)
[2020-01-12 08:05] LABS: CALCIUM 7.2 mg/dL (8.5-10.1); CREATININE 1.5 mg/dL (0.7-1.3); POTASSIUM 4.4 mmol/L (3.5-5.1)
--- NOTE | 2020-01-12 08:12 | EKG ---
[facility] [address]ina [address] [facility] [place] [address] ELECTROCARDIOGRAM REPORT Name: JORGITO GIBSON Room #: 243-P ADM IN M.R.#: [id number] Admission: 12/18/19 Attend Phys: Cehmo Lopez MD Discharge: Date of : 45 Report #: [id number] THIS REPORT FOR: cc: Chemo Lopez MD, Daniel J. MD Couchonnal, Luis F. MD ~ THIS REPORT FOR: //name// [facility] Test Date: 2020-01-12 Test Time: 07:57:43 Pat Name: JORGITO GIBSON Department: Room: 243 P Gender: M [employer] Liaison: Flakita HERZOG : 1945 Requested By: Sunil Catalan Order Number: [id number] MD: Aaron Alicea Measurements Intervals [place] Rate: 130 P: 71 NC: 111 QRS: -29 QRSD: 73 T: QT: 345 QTc: 508 Interpretive Statements Sinus tachycardia Probable left atrial enlargement Abnormal R-wave progression, early transition Inferior infarct, old Prolonged QT interval No previous ECG available for comparison Electronically Signed On 01-12-2020 8:10:25 CDT by Aaron Alicea [email or web address] <ELECTRONICALLY SIGNED> By: Aaron Alicea MD 01/12/20 0810 [id number] Aaron Alicea MD /EPI
--- NOTE | 2020-01-12 08:27 | NUR ---
Pt PLACED ON HOLD FROM P.T. DUE TO DECLINE IN MEDICAL STATUS AND SUBSEQUENT TX TO ICU. PLEASE RE-ORDER P.T. WHEN PT IS DEEMED MEDICAL STABLE TO PARTICIPATE IN THERAPEUTIC ACTIVITIES.
[2020-01-12 09:21] LABS: BE(vivo) -14.2 mmol/L (-2 to +3); HCO3 11.7 mmol/L (22.0-26.0); PCO2 27.1 mmHg (35.0-45.0); PO2 72.9 mmHg (80.0-100.0); pH 7.252 (7.360-7.450); sO2 92.7 % (92.0-98.0)
--- NOTE | 2020-01-12 10:57 | NUR ---
VASCULAR ACCESS CONSULTED FOR PICC LINE,PT'S LABS,MEDS,HISTORY ,ORDER AND CONSENT VERIFIED. TOM BRACHIAL WAS WIDELY PATENT WITH USG. 5FR TL POWER PICC TRIMMED TO 41CM INSERED TO 2CM EXTERNAL WITH BRISK BR. STAT CXR CONFIRMED PICC IN SVC. PICC RELEASED FOR IMMEDIATE USE PER PROTOCOL TO GIOVANY ESPINOSA. PT TOLERATED WELL
[2020-01-12 12:58] LABS: BE(vivo) -15.4 mmol/L (-2 to +3); HCO3 11.8 mmol/L (22.0-26.0); PCO2 33.1 mmHg (35.0-45.0); PO2 90.8 mmHg (80.0-100.0); sO2 94.9 % (92.0-98.0)
[2020-01-12 14:23] LABS: CALCIUM 6.4 mg/dL (8.5-10.1); CREATININE 1.7 mg/dL (0.7-1.3); POTASSIUM 3.7 mmol/L (3.5-5.1)
--- NOTE | 2020-01-12 15:21 | NUR ---
PATIENT TRANSFERRED TO ICU DUE TO A CHANGE IN MEDICAL STATUS. WILL AWAIT NEW ORDERS WHEN PATIENT IS MEDICALLY APPROPRIATE.
--- NOTE | 2020-01-12 16:28 | NUR ---
SW reviewed chart. 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 Pt had PICC line placed today. Therapy evals on hold at this time. [facility] has tentatively accepted pt pending treatment plan per Hem/Onc. DAR is following to assist as needed with discharge planning.
[2020-01-12 16:34] LABS: URINE BILIRUBIN NEGATIVE (Negative); URINE BLOOD TRACE (Negative); URINE CLARITY SL CLOUDY; URINE COLOR YELLOW; URINE GLUCOSE-RANDOM* NEGATIVE (Negative); URINE KETONES TRACE (Negative); URINE LEUKOCYTES NEGATIVE (Negative); URINE NITRITE NEGATIVE (Negative); URINE PROTEIN (DIPSTICK) 2+ (Negative); URINE SPECIFIC GRAVITY 1.025 (1.005-1.035)
[2020-01-12 16:48] LABS: AMORPHOUS URATES Moderate /LPF (None Seen); BACTERIA 1-9 Few /HPF (None Seen); CASTS None Seen /LPF (None Seen); SQUAMOUS 0-3 Few /LPF (0-3); URINE RBC None Seen /HPF (0-2); URINE WBC None Seen /HPF (0-5)
[2020-01-12 16:54] LABS: BE(vivo) -12.5 mmol/L (-2 to +3); HCO3 13.6 mmol/L (22.0-26.0); PCO2 31.9 mmHg (35.0-45.0); PO2 88.4 mmHg (80.0-100.0); sO2 95.5 % (92.0-98.0)
[2020-01-12 16:55] LABS: pH 7.248 (7.360-7.450)
--- NOTE | 2020-01-12 16:55 | NUR ---
ASSUMED CARE @ 0700 01/12/20, PT ASSESSMENTS AND VSS COMPLETE PER ICU PROTOCOL AND DOCUMENTED. PT ENCOUNTERED ON THE NRB 15L, PT NOT FOLLOWING COMMANDS AT THE TIME BUT SATS MAINTAINED IN THE HIGH 90'S. PULMONARY CONSULT CALLED IN, NEW ORDERS RECEIVED. CRITICAL PH CALLED TO DR BARLOW, ORDERS RECIEVED. PT INTUBATED @ 1135, PROPOFOL FOR SEDATION, NO COMPLICATIONS NOTED, ABG ACQUIRED AFTER AND CALLED TO DR BARLOW, NEW ORDERS RECIEVED. FROM 9AM TO 11AM PT MADE 5ML/HR, DR BARLOW INFORMED, NEW ORDERS RECIEVED AND DR HARMAN RECONSULTED ON THE CASE, AFTER FOLLOWING DR BARLOW'S FLUIDS AND MED ORDERS, DR HARMAN RETURNS PAGE RN GIVES REPORT OF ALL ORDERS EXECUTED AND RN IS INFORMED BY DR HARMAN THAT PT MIGHT NOT MAKE ANY URINE FOR 24-48 HOURS AND HE SHOULD NOT BE CALLED FOR NO-LOW URINE OUTPUT, RN IS ADVISED TO PASS IT ON TO NOTCHER. WILL CONTINUE TO MONITOR. ORIGINAL DOBHOFF IS TAKEN OUT AND A NEW OG TUBE IS PLACE TO LIS, AT INSERTION 400ML IS RETRIEVED ALMOST IMMEDIATELY. DR ROBERTO HERE TO ROUND DURING SHIFT, MORE TESTS ARE ORDERED AND EXECUTED.
[2020-01-13] VITALS (92 sets, daily range): BP systolic 86–117; BP diastolic 32–64
[2020-01-13 04:18] LABS: BE(vivo) -8.7 mmol/L (-2 to +3); PCO2 29.3 mmHg (35.0-45.0); PO2 82.3 mmHg (80.0-100.0); pH 7.354 (7.360-7.450); sO2 95.9 % (92.0-98.0)
[2020-01-13 05:50] LABS: HEMATOCRIT 20.4 % (42.0-52.0); RBC 2.69 mil/uL (4.50-6.00)
[2020-01-13 05:52] LABS: MCH 24.4 pg (26.0-34.0); MCHC 32.1 g/dL (28.0-37.0); MCV 75.9 fL (80.0-100.0); PLATELET COUNT 139 thou/uL (150-400); RDW 22.9 % (10.5-14.5); WBC 18.6 thou/uL (4.0-11.0)
[2020-01-13 05:59] LABS: ALBUMIN 0.8 g/dL (3.4-5.0); CALCIUM 6.5 mg/dL (8.5-10.1); CREATININE 2.1 mg/dL (0.7-1.3); HEMOGLOBIN 6.6 gm/dL (14.0-18.0); POTASSIUM 3.9 mmol/L (3.5-5.1); TOTAL BILIRUBIN 0.3 mg/dL (<0.1-1.0); TOTAL PROTEIN 5.1 g/dL (6.4-8.2)
--- NOTE | 2020-01-13 06:19 | NUR ---
ASSUMED CARE OF PATIENT AT 1900. EXTREMELY TACHYCARDIC AT START OF SHIFT, MEOTPROLOL GIVEN, HEART RATE REDUCED, BP MAINTAINED WITH LEVOPHED GTT. LEVOPHED GTT TITRATED PER FLOW SHEET. PROGRESSING SLOWLY TOWARDS POC GOALS.
[2020-01-13 09:26] LABS: ANISOCYTOSIS 1+; HYPOCHROMASIA SLIGHT; LARGE PLATELETS OCCASIONAL; METAMYELOCYTES 1 %; POIKILOCYTOSIS SLIGHT
[2020-01-13 10:30] LABS: ABSOLUTE NEUTROPHILS 17.9 thou/uL (1.4-8.2)
--- NOTE | 2020-01-13 10:39 | 2DMMODE ---
[address] [address] 2 D/M-MODE ECHOCARDIOGRAM Name: JORGITO GIBSON Room #: 243-P ADM IN M.R.#: [id number] Admission: 12/18/19 Attend Phys: Chemo Lopez MD Discharge: Date of : 45 Report #: [id number] THIS REPORT FOR: cc: Chemo Lopez MD, Daniel J. MD Lundgren, Craig H. MD [facility] ~ APPROVED REPORT Study performed: 01/13/2020 09:19:33 EXAM: Comprehensive 2D, Doppler, and color-flow Echocardiogram Patient Location: ICU Room #: [facility] Status: routine BSA: 1.97 HR: 93 bpm BP: 106/61 mmHg Rhythm: NSR Other Information Study Quality: Technically DifficultTechnically Limited Technically limited study due to lung disease, inability to position patient, patient on ventilator. Indications CVA/TIA Diabetes CAD Hypertension/HDD Echo Enhancing Agent Indication: Rule out Shunt Agent(s) / Amount(s) Used: Agitated Saline 7 cc 2D Dimensions IVC: 13.00 mm Aortic Valve AoV Peak Rosalio.: 0.83 m/s AO Peak Gr.: 2.74 mmHg Pulmonary Valve PV Peak Rosalio.: 0.90 m/s PV Peak Gr.: 3.[address] [address] 2 D/M-MODE ECHOCARDIOGRAM Name: JORGITO GIBSON Room #: 243-P ADM IN M.R.#: [id number] Admission: 12/18/19 Attend Phys: Chemo Lopez MD Discharge: Date of : 45 Report #: [id number] Tricuspid Valve TR Peak Rosalio.: 3.13 m/s TR Peak Gr.: 39.14 mmHg PA Pressure: 44.00 mmHg Left Ventricle The left ventricle is normal size. Regional wall motion is not well visualized but grossly normal. There is normal left ventricular wall thickness. The left ventricular systolic function is normal. The left ventricular ejection fraction is within the normal range. LVEF is 55-60%. This study is not technically sufficient to allow evaluation of the LV diastolic function. Right Ventricle The right ventricle is normal size. The right ventricular systolic function is normal. Atria Left atrium is at the upper limits of normal. No shunting by contrast bubble injection Right atrium is at the upper limits of normal. Aortic Valve Aortic valve is calcified. Mild aortic regurgitation. There is no aortic valvular stenosis. Mitral Valve The mitral valve is normal in structure. Trace mitral regurgitation. No evidence of mitral valve stenosis. Tricuspid Valve The tricuspid valve is normal in structure. There is mild tricuspid regurgitation. Estimated PAP 44 mmHg. Pulmonic Valve The pulmonary valve is normal in structure. There is no pulmonic valvular regurgitation. Great Vessels Aortic root is not well visualized. IVC is normal in size and collapses >50% with inspiration. Pericardium There is no pericardial effusion. <Conclusion> [facility] [address] [place] [address] 2 D/M-MODE ECHOCARDIOGRAM Name: JORGITO GIBSON Room #: 243-P ADM IN M.R.#: [id number] Admission: 12/18/19 Attend Phys: Chemo Lopez MD Discharge: Date of : 45 Report #: [id number] The left ventricular systolic function is normal. Regional wall motion is not well visualized but grossly normal. LVEF is 55-60%. No shunting by contrast bubble injection Aortic valve is calcified, not stenotic. Mild aortic regurgitation. The mitral valve is normal in structure. Trace mitral regurgitation. There is mild tricuspid regurgitation. Estimated pulmonary artery pressure of 44 mmHg. There is no pericardial effusion. <ELECTRONICALLY SIGNED> By: Hernando Overton MD, FACC 01/13/20 1036 35 Hernando Overton MD, FACC /INF
--- NOTE | 2020-01-13 11:25 | NUR ---
Dr. Catalan present, updated on pt status including hg-6.6. PRBC 1 unit and sliding scale insulin ordered.
--- NOTE | 2020-01-13 13:09 | PATH ---
[facility] [address] [place] [address] PATHOLOGY RPT PROCEDURE Name: JORGITO GIBSON Room #: 243-P ADM IN M.R.#: [id number] Admission: 12/18/19 Date of : 45 Discharge: Report #: [id number] Path Case #: [id number] Note [facility] Accession Number: [id number] TESTS RESULT FLAG UNITS REF RANGE LAB Clinician Provided Cytology Information No. of containers..01 Other (Miscellaneous) Source: CSF DIAGNOSIS: 02 CSF NEGATIVE FOR MALIGNANT EPITHELIAL CELLS. RARE LYMPHOCYTES AND MACROPHAGES PRESENT. NEGATIVE FOR VIRAL INCLUSIONS OR PARASITIC ORGANISMS. Pathologist ICD10: 02 D50.9 Signed out by: Comfort Mack MD, Pathologist NPI- [id number] Performed by: Meme Bains, Tack Maker ([facility]) Gross description: 01 2.5 ML, CLOUDY PINK, 1 TP /LCS 01/11/2020 1048 Local FLAG LEGEND: L-Low Normal,H-High Normal,LL-Alert Low,HH-Alert High <-Panic Low,>-Panic High,A-Abnormal,AA-Critical Abnormal Performed at: [address] [place] [address] Benji Llanes MD, [address] [address] Comfort Mack MD, Specimen Comment: A courtesy copy of this report has been sent to [phone] Specimen Comment: Report sent to Specimen Comment: A duplicate report has been generated due to demographic updates. Performed at: [address], [place], [place] [id number] MD Benji Llanes MD Phone: [phone]
--- NOTE | 2020-01-13 16:33 | NUR ---
DAR reviewed chart and spoke with nursing. Pt is currently intubated. Pt required intubation yesterday. Pt with elevated enzymes and no urine output. Pt to have blood transfusion today-hemoglobin is 6.6. Pt has been accepted to [facility] pending treatment plan. DAR is following to assist as needed with discharge planning.
--- NOTE | 2020-01-13 18:30 | NUR ---
MIGUELITO, AUTHORIZED CONTACT CALLED INQUIRING REGARDING PT STATUS. UPDATED INCLUDING PT ON VENT WITH SEDATION, BLOOD INFUSING FOR HGB-6.6, IV MEDICATION TO KEEP BP UP (LEVOPHED), KIDNEY AND LIVER LABS ELEVATED. ALL QUESTIONS ANSWERED TO HIS SATISFACTION.
[2020-01-13 23:42] LABS: HEMATOCRIT 21.8 % (42.0-52.0); HEMOGLOBIN 7.3 gm/dL (14.0-18.0)
[2020-01-14] VITALS (94 sets, daily range): BP systolic 89–126; BP diastolic 46–73
[2020-01-14 05:22] LABS: HEMATOCRIT 21.9 % (42.0-52.0); HEMOGLOBIN 7.3 gm/dL (14.0-18.0); MCH 25.8 pg (26.0-34.0); MCHC 33.6 g/dL (28.0-37.0); MCV 76.8 fL (80.0-100.0); RBC 2.85 mil/uL (4.50-6.00); RDW 25.3 % (10.5-14.5); WBC 15.1 thou/uL (4.0-11.0)
--- NOTE | 2020-01-14 05:25 | NUR ---
PT INTUBATED AND LIGHTLY SEDATED ON PROPOFOL GTT AT 15MCG. SEDATION VACATION AT 2030, LASTED 5 MINUTES; PT OPENS EYES SPONTANEOUSLY, FOLLOWS COMMANDS, ALTHOUGH WEAK, HE MOVES ALL EXTREMITIES EXCEPT R HAND. WITHDRAWS TO PAIN STIMULI. PT IS OLIGURIC; DR. THORNTON AWARE. QUAD STRENGHT LEVO TITRATED DOWN TO 3MCG FROM 5MCG; DRIP BAG SWITCHED OUT TO STANDARD STRENGHT, PT'S BP IS TOLERATING TITRATION. SIGNIFICANT SCROTAL AND PENILE EDEMA NOTED ALONGSIDE LOWER QUADRANT ABDOMINAL AND BILATERAL THIGH EDEMA OF 2+. PT RESTED WELL ALL NOC. PT IS STABLE AND SLOWLY PROGRESSING TOARDS POC GOALS.
[2020-01-14 06:08] LABS: ALBUMIN 0.8 g/dL (3.4-5.0); CALCIUM 6.2 mg/dL (8.5-10.1); CREATININE 2.5 mg/dL (0.7-1.3); POTASSIUM 3.5 mmol/L (3.5-5.1)
--- NOTE | 2020-01-14 12:04 | NUR ---
ON-GOING ASSESSMENT: CM REVIEWED CHART. PT REMAINS ON THE VENTILATOR. PT IS NOT MAKING URINE AND PER RENAL HE IS NOT A CANIDATE FOR DIALYSIS. PT WAS STARTED ON HIGH DOSE OF LASIX TO SEE IF THERE IS ANY IMPROVEMENT. STILL AWAITING BONE MARROW BIOPSY. CM REACHED OUT TO PATINTS BROTHER MIGUELITO [phone] TO UPDATE HIM AND HE REPORTS THAT HE HAS BEEN SPEAKING TO THE BEDSIDE NURSE AND HAD SPOKE WITH DR. ROBERTO A FEW DAYS AGO. PER PREVIOUS NOTES [facility] HAS TENTATIVELY ACCEPTED PATIENT PENDING TREATMENT PLAN PT WAS LIVING IN AN EXTENDED STAY HOTEL PRIOR TO ADMISSION. YASMINE WILL CONTINUE TO FOLLOW TO ASSIST NEEDED.
--- NOTE | 2020-01-14 14:42 | NUR ---
DR. BARLOW GAVE CONSENT TO START TUBE FEEDING TODAY, THEN DEFERRED DECISIONS TO DR. HARMAN. RN CALLED DR. HARMAN, CALL RETURNED. RECEIVED ORDERS FOR TUBE FEEDING AND DECREASING IV FLUID RATE. DR. HARMNA RETURNED CALL AFTER HE ATTEMPTED TO SPEAK WITH MIGUELITO, AUTHORIZED CONTACT.
[2020-01-15] VITALS (69 sets, daily range): BP systolic 88–114; BP diastolic 43–64
[2020-01-15 04:55] LABS: ALBUMIN 0.8 g/dL (3.4-5.0); CALCIUM 6.2 mg/dL (8.5-10.1); CREATININE 2.9 mg/dL (0.7-1.3); PHOSPHORUS 3.4 mg/dL (2.5-4.9); POTASSIUM 3.5 mmol/L (3.5-5.1)
--- NOTE | 2020-01-15 05:10 | NUR ---
PT SEDATED. ABLE TO FOLLOW COMMANDS. AWAKENS TO BOTH TACTILE,AND VERBAL STIMULI. LEVO ON HOLD SINCE YESTERDAY DAYSHIFT, PT's BP SOFT BUT STABLE, MAP > 60. PT APPEAR COMFORTABLE, NO APPARENT PAIN. TUBE FEEDING AT 20ML/HR, NOT TITRATED OVERNIGHT DUE TO VERY HYPOACTIVE BOWELS. SKELTON CATHETER INPLACE, 250 CC OUTPUT OVER NIGHT, PT ON LASIX DRIP. SAMPLES FOR [employer] (TB TEST) COLLECTED, SENT TO LAB. ALL OTHER CARES COMPLETED DOCUMENTED. NO OTHER CONCERNS. WILL CONTINUE TO FOLLOW POC.
[2020-01-15 14:57] LABS: BE(vivo) -9.8 mmol/L (-2 to +3); HCO3 13.4 mmol/L (22.0-26.0); PO2 93.1 mmHg (80.0-100.0); pH 7.406 (7.360-7.450); sO2 97.4 % (92.0-98.0)
[2020-01-15 14:58] LABS: PCO2 21.9 mmHg (35.0-45.0)
--- NOTE | 2020-01-15 15:21 | NUR ---
DAR reviewed chart and spoke with nursing. Pt remains intubated and is on Lasix gtt. Cpap trials started today. Awaiting bone marrow biopsy results. Pt has NG tube in place and has started tube feedings. No weekend discharge planned. DAR is following to assist as needed.
[2020-01-15 19:31] LABS: T-SPOT.TB Negative
--- NOTE | 2020-01-15 20:20 | NUR ---
ASSUMMED PT CARE AT APPROXIMATELY 0700. PT AWAKE AND ALERT. PT NODS TO QUESTIONS. PT RAISES EYEBROWS WHEN TALKING TO PT. PT FOLLOWS COMMANDS. PT ON VENTILATOR. FREQUENT REORIENTATION PROVIDED. ASSESSMENT CHARTED. FALL PRECAUTIONS IN PLACE. SOFT WRIST RESTRAINTS IN PLACE. PT IN NO APPARENT PAIN. VITAL SIGNS STABLE. BLOOD SUGARS STABLE. PT HAD CPAP EVALUATION. INFORMED DR. BARLOW OF MY ASSESSMENT AFTER CPAP EVAL. INFORMED DR. BARLOW OF PT'S VITAL SIGNS AND ABG RESULTS. DR. BARLOW STATED TO RESUME PREVIOUS VENT SETTINGS AND PROPOFOL. ORDERS IMPLETED. INFORMED RT. PT VITAL SIGNS STABLE AFTER RESUMING VENT AND PROPOFOL. EDUCATED PT'S FAMILY MEMBER MIGUELITO ABOUT POC. MIGUELITO STATED UNDERSTANDING AND DENIED HAVING FURTHER QUESTIONS. PT COMFORTABLE. PT DENIES HAVING FURTHER CONCERNS. LINES CHANGED ON IV DRIPS PER PROTOCOL. INFORMED DR. BARLOW OF BUN AND CLIENT SERVICES SPECIALIST. DR. BARLOW STATED NO NEW ORDERS. FOLLOWED TIRITRATION OF TUBE FEEDING PER RECOMMENDED RATE INCREASE OF 10ML Q 6 HR FROM JAJA SUPERVISOR COMPRESSED YEAST. PT TOLERATING TUBE FEEDINGS. SEE INTERVENTION.
[2020-01-16] VITALS (56 sets, daily range): BP systolic 75–123; BP diastolic 39–70
--- NOTE | 2020-01-16 04:58 | NUR ---
ASSUMED PT CARE AT 1900. PT IS INTUBATED AND SEDATED BUT DOES RESPOND AND FOLLOWS COMMAND. NO SIGN OF DISTRESS NOTED IN PT. ASSESSMENT DOCUMENTED AND COMPLETED. DRIPS STILL IN PLACE. VITAL SIGNS STABLE. SCHEDULED MEDS ADMINISTERED TO PT VIA OGT. NO ACUTE EVENTS OVERNIGHT. CONTINUE TO MONITOR. NO FURTHER NEEDS AT THIS TIME.
[2020-01-16 06:02] LABS: HEMATOCRIT 24.6 % (42.0-52.0); HEMOGLOBIN 8.2 gm/dL (14.0-18.0); MCH 25.7 pg (26.0-34.0); MCHC 33.3 g/dL (28.0-37.0); MCV 77.3 fL (80.0-100.0); PLATELET COUNT 70 thou/uL (150-400); RBC 3.18 mil/uL (4.50-6.00); RDW 25.5 % (10.5-14.5); WBC 15.2 thou/uL (4.0-11.0)
[2020-01-16 06:13] LABS: ALBUMIN 0.9 g/dL (3.4-5.0); CALCIUM 6.2 mg/dL (8.5-10.1); CREATININE 3.3 mg/dL (0.7-1.3); PHOSPHORUS 4.8 mg/dL (2.5-4.9); POTASSIUM 3.1 mmol/L (3.5-5.1)
[2020-01-16 06:50] LABS: ABSOLUTE NEUTROPHILS 14.6 thou/uL (1.4-8.2)
[2020-01-16 06:51] LABS: ANISOCYTOSIS 1+; HYPOCHROMASIA 1+; PLATELET ESTIMATE DECREASED
--- NOTE | 2020-01-16 13:52 | NUR ---
1010-ASSUMED CARE OF PT.--VW 1230-BIENVENIDO BARLOW & HERRERA IN. NO VENT WEANING TODAY PER DR. BARLOW.--VW
[2020-01-17] VITALS (70 sets, daily range): BP systolic 73–119; BP diastolic 40–71
[2020-01-17 05:59] LABS: CREATININE 3.6 mg/dL (0.7-1.3); PHOSPHORUS 5.5 mg/dL (2.5-4.9)
--- NOTE | 2020-01-17 07:53 | NUR ---
0600-Levophed titrated off and has been off for several hours. MAP has stayed above 65 without the levophed. Patient has remained stable on the ventilator and on Propofol @ 20 mcg/kg/min. Lasix gtt and Bicarb gtt discontinued this morning per Renal physician's orders. Morning potassium level is 3.0, day shift RN to replace with 40 meq of potassium. Reporting off to day shift RN.
--- NOTE | 2020-01-17 12:45 | NUR ---
ASSUMED CARE 0700, PT ASSESSMENTS AND VSS COMPLETE PER ICU PROTOCOL AND DOCUMENTED. PT ON PROPOFOL GTT FOR VENT SEDATION, SEDATION VACATION @ 0810, PT ABLE TO TRACK AND MOVE ALL EXTREMITIES. PT ON THE VENT, SAME SETTING, PT TOLERATING, SATS 98%. PT IN ST; PVC'S, PT HAS BEEN OFF LEVOPHED SINCE LAST NIGHT, SBP 80'S-120'S, MAP GREATER THAN 60. PT OG IN PLACE, TF RESIDUAL IN THE AM 220, TF HELD FOR 4 HOURS, RESIDUAL RETAKEN 280, TF STILL HELD. PT UO 15-20ML/HR, DR HARMAN INFORMED, LASIX ORDERED AND RN TOLD TO NOT CALL EVEN IF UO DOESNT [place] MAKER THAT IT WILL BE ADDRESSED TOMORROW IN THE AM.
[2020-01-18] VITALS (88 sets, daily range): BP systolic 80–124; BP diastolic 43–68
[2020-01-18 06:13] LABS: ABSOLUTE NEUTROPHILS 15.3 thou/uL (1.4-8.2); BASOPHILS 0.2 % (0.0-2.0); HEMATOCRIT 24.6 % (42.0-52.0); HEMOGLOBIN 8.2 gm/dL (14.0-18.0); LYMPHOCYTES 1.3 % (24.0-44.0); MCH 25.8 pg (26.0-34.0); MCHC 33.4 g/dL (28.0-37.0); MCV 77.2 fL (80.0-100.0); MONOCYTES 1.6 % (1.0-8.0); PLATELET COUNT 70 thou/uL (150-400); POLYS 96.9 % (36.0-66.0); RBC 3.18 mil/uL (4.50-6.00); RDW 25.1 % (10.5-14.5); WBC 15.8 thou/uL (4.0-11.0)
[2020-01-18 06:28] LABS: ALBUMIN 0.9 g/dL (3.4-5.0); CREATININE 3.9 mg/dL (0.7-1.3); PHOSPHORUS 4.9 mg/dL (2.5-4.9); TOTAL BILIRUBIN 0.4 mg/dL (<0.1-1.0); TOTAL PROTEIN 5.3 g/dL (6.4-8.2)
[2020-01-18 06:30] LABS: CALCIUM 5.8 mg/dL (8.5-10.1); POTASSIUM 2.3 mmol/L (3.5-5.1)
--- NOTE | 2020-01-18 19:27 | NUR ---
ASSUMED CARE AT 0700. PT REMAINS ON VENTILATOR. RT CHANGED SETTINGS FROM PC TO AC. ON SEDATION VACATION, PT OPENS EYES SPONTANEOUSLY AND MOVES ARMS SPONTANEOUSLY BUT DOES NOT TRACK OR FOLLOW ANY VEBAL COMMANDS. PT RECEIVED POTASSIUM REPLACEMENT THIS AM ORDERED BY TOOL DISTRIBUTOR. PT HAS MINIMAL URINE OUTPUT. PT REMAINS ON LEVOPHED GTT FOR BLOOD PRESSURE SUPPORT TO KEEP MAP >60. PT'S BROTHER MIGUELITO CALLED AT 1700 AND WANTS TO VISIT PT AFTER TALKING WITH DR. ROBERTO. BROTHER STATES DR WANTS HIM AND HIS SISTER TO BE ABLE TO VISIT DUE TO END OF LIFE CONCERNS. SE[employer]ER [employer] BAND STATES TO TELL BROTHER TO CALL TOMORROW AND ASK TO SPEAK WITH HUMAN RESOURCES MGR. BROTHER STATES OK.
[2020-01-19] VITALS (30 sets, daily range): BP systolic 84–152; BP diastolic 44–71
[2020-01-19 05:26] LABS: ALBUMIN 0.9 g/dL (3.4-5.0); CALCIUM 6.1 mg/dL (8.5-10.1); CREATININE 4.2 mg/dL (0.7-1.3); PHOSPHORUS 5.4 mg/dL (2.5-4.9); TOTAL BILIRUBIN 0.3 mg/dL (<0.1-1.0); TOTAL PROTEIN 5.5 g/dL (6.4-8.2)
[2020-01-19 06:02] LABS: HEMATOCRIT 23.2 % (42.0-52.0); HEMOGLOBIN 7.7 gm/dL (14.0-18.0); MCH 25.9 pg (26.0-34.0); MCHC 33.3 g/dL (28.0-37.0); MCV 77.7 fL (80.0-100.0); PLATELET COUNT 75 thou/uL (150-400); RBC 2.98 mil/uL (4.50-6.00); RDW 24.8 % (10.5-14.5); WBC 19.6 thou/uL (4.0-11.0)
[2020-01-19 06:09] LABS: POTASSIUM 2.3 mmol/L (3.5-5.1)
--- NOTE | 2020-01-19 07:12 | NUR ---
ASSUMED PATIENT CARE AT 1845. BREATHING REMAINS STABLE ON VENTILATOR EVIDENCED BY ASSESSMENTS AND CONTINUOUS SATURATION MONITOR. PATIENT IS ABLE TO OPEN EYES AND TRACK BUT UNABLE TO FOLLOW COMMANDS. LEVOPHED TITRATED TO DESIRED RESPONSE. SINUS TACHYCARDIA WITH FREQUENT PVC'S THROUGHOUT SHIFT. PATIENT TOLERATED TUBE FEEDS WITH MINIMAL RESIDUALS. 300 CC URINARY OUTPUT OVER SHIFT WITH PROVIDER AWARE. MORNING DOSE OF LASIX HELD DUE TO CRITICAL LOW POTASSIUM. ELECTROLYTE PROTOCOL STARTED PER ORDER. FREQUENT TURNS AND SKIN CARE. WOUND CARE NURSE CONSULTED DUE TO SKIN ASSESSMENT SHOWING SKIN OPENING.
--- NOTE | 2020-01-19 07:46 | NUR ---
HAVING SVT RUNS,BREAKING ON OWN W RATE HIGH 180'S. EKG PENDING. CALL TO VIA [employer].--VW
[2020-01-19 09:05] LABS: ANISOCYTOSIS 2+
--- NOTE | 2020-01-19 14:36 | EKG ---
[facility] [place] [facility] [address] ELECTROCARDIOGRAM REPORT Name: JORGITO GIBSON Room #: 243-P ADM IN M.R.#: [id number] Admission: 12/18/19 Attend Phys: Chemo Lopez MD Discharge: Date of : 45 Report #: [id number] THIS REPORT FOR: cc: Chemo Lopez MD, Daniel J. MD Couchonnal, Luis F. MD ~ THIS REPORT FOR: //name// [facility] Test Date: 2020-01-19 Test Time: 08:28:49 Pat Name: JORGITO GIBSON Department: Room: 243 P Gender: M Prospecting Driller: TAO : 1945 Requested By: Chemo Lopez Order Number: [id number] MD: Aaron Alicea Measurements Intervals Pyatt Rate: 97 P: 76 CT: 126 QRS: -7 QRSD: 108 T: 38 QT: 375 QTc: 477 Interpretive Statements Possible atrial fibrillation Low voltage, extremity and precordial leads Compared to ECG 01/12/2020 07:57:43 Electronically Signed On 01-19-2020 14:34:12 CDT by Aaron Alicea [email or web address] <ELECTRONICALLY SIGNED> By: Aaron Alicea MD 01/19/20 1434 0828 0828 Aaron Alicea MD /EPI
--- NOTE | 2020-01-19 16:12 | NUR ---
SW reviewed chart and spoke with nursing. Pt remains in ICU. Pt's family contacted earlier today regarding pt's condition. Pt is a DNR and extubated this afternoon. Pt on comfort care measures. Pt's family is not planning on visiting pt. SW is following to assist as needed.
--- NOTE | 2020-01-19 18:36 | NUR ---
PT TRANSFERED FROM ICU TO 443 FOR PALLAITIVE CARE. 4+ EDEMA NOTED THROUGHOUT BODY. AWAKE WITH EYES OPEN. LUNG SOUNDS ARE RHONCI. MOTTLING NOTED FROM KNEES DOWN. PT HAS A BLANK STARE THOUGH DOES TRACK WITH EYES. ORIENTED PT TO ROOM/CALL LIGHT.
--- NOTE | 2020-01-20 00:54 | NUR ---
ASSUMED PT CARE AT APPROX 1900.PT ON COMFORT CARE.PT WAS NON RESPONSIVE AT START OF SHIFT.SKELTON TO DD.PT REPOSITIONED WHILE IN BED.PT HAD FOUR LOOSE STOOLS,TRAV CARE AND BARRIER CREAM TO BUTTOCKS.PT AT APPROX 2305.PHYSICIAN AND FAMILY NOTIFIED.PT CLEANED AND BAGGED.PT'S BELONGINGS PACKED AND WILL BE RELEASED TO THE HOME.
--- NOTE | 2020-01-28 00:07 | PATH ---
[facility] [place] [address] PATHOLOGY RPT PROCEDURE Name: KATHERINE GIBSON Room #: 443-P DIS IN M.R.#: [id number] Admission: 12/18/19 Date of : 45 Discharge: 01/19/20 Report #: [id number] Path Case #: [id number] [facility] Accession Number: [id number] . 01 Material submitted: . PART A: bone - BONE MARROW BIOPSY PART B: bone - BONE MARROW CLOT PART C: bone - BONE MARROW ASPIRATE SLIDES PART D: bone - PERIPHERAL BLOOD PART E: bone - BONE MARROW FLOW . 01 Clinical history: . This is a 74-year-old man with microcytic anemia, weakness with frequent falls, immunodeficiency and leukocytosis. . Lymphoma, rule out cancer, iron deficiency anemia secondary. . 02 Diagnosis: Bone marrow aspirate, biopsy, cell clot and peripheral blood: - Peripheral blood with severe microcytic anemia and leukocytosis/neutrophilia. - Hypercellular bone marrow with trilineage hematopoiesis, myeloid hyperplasia/erythroid hypoplasia, mild dyspoiesis, focal serous fat atrophy, polyclonal plasmacytosis and no evidence of lymphoma, acute leukemia or plasma cell dyscrasia. (See comment) . (CLW:katherine; 01/15/2020) . . Special studies report received from [facility], [address] [place] [address], [address], [place], [address], on case [id number], labeled with their number [id number], dated 01/13/2020. . Flow Cytometry: Hematologic Neoplasia Assessment . Clinical History Suspected lymphoma . Indication for Study Evaluation for lymphoma . Specimen Bone Marrow . Viability 91% (7AAD exclusion) . [address] [address] PATHOLOGY RPT PROCEDURE Name: KATHERINE GIBSON Room #: 443-P DIS IN M.R.#: [id number] Admission: 12/18/19 Date of : 45 Discharge: 01/19/20 Report #: [id number] Path Case #: [id number] Interpretation Bone Marrow: - No evidence for a B-cell or T-cell lymphoproliferative disorder. - Inverted T cells CD4:CD8 ratio (0.1:1) - No evidence for left shifted myeloid maturation or an increased blast population. . Comments The inverted T cells CD4:CD8 ratio is likely reactive (HIV, viral infection, immune mediated process, medication effect, etc.). Focal bone marrow involvement by lymphoma, some large cell lymphomas and some peripheral T-cell lymphomas cannot be categorically excluded by flow cytometric analysis. Correlation with available clinical, laboratory, and morphologic data is recommended. . Populations Analyzed Myeloid Blasts: 0.3% No significant immunophenotypic abnormalities Lymphocytes: 7% B-cells: 0.2%, polytypic/polyclonal sIg light chain pattern T-cells: no significant abnormalities of the markers tested CD4+ T-cells: 0.3% (including 0.0% CD57+ cells) CD8+ T-cells: 2.7% (including 0.9% CD57+ cells) CD4:CD8: 0.1 (inverted) NK cells: 3.7% Neutrophilic Cells: 82% Slightly right shifted maturation pattern. Monocytic Cells: 8% No significant abnormalities of the markers tested Eosinophils: 1.2% No relative increase Basophils: 0.1% No relative increase Plasma Cells: 0.8% Few detected; no overt abnormalities of the surface markers tested (plasma cells are typically underrepresented by flow cytometry; cytoplasmic light chains were not assessed) Hematogones: 0.0% Normal B-cell precursors CD45 Negative 0.6% No significant reactivity with the markers Events/Debris: tested (may represent unlysed red blood cells, erythroid precursors, platelets, debris, etc.) (erythroid precursors may be underrepresented due to sample lysis/processing) . Morphologic Evaluation A slide was reviewed for quality control auditor purposes only. . Specimen Description Total Cell Yield: 4.56 x10 and [address] [address] PATHOLOGY RPT PROCEDURE Name: KATHERINE GIBSON Room #: 443-P DIS IN M.R.#: [id number] Admission: 12/18/19 Date of : 45 Discharge: 01/19/20 Report #: [id number] Path Case #: [id number] Pertinent Prior Test Results Received Date Test Type Specimen Type Result 01/01/2020 Flow Cytometry Tissue Result Number: [id number] See Report 01/01/2020 B/T cell gene Tissue Result Number: [id number] rearrangement Clonal T-cell receptor beta gene rearrangement was detected . No evidence of a clonal T-cell receptor gamma chain gene rearrangement 01/01/2020 B/T cell gene Tissue Result Number: [id number] rearrangement Clonal immunoglobulin kappa light chain (IGK) gene rearrangement was detected . No evidence of a clonal immunoglobulin heavy chain (IGH) gene rearrangement 12/25/2019 Flow Cytometry Tissue Result Number: [id number] Tissue, Retroperitoneal Mass: No evidence of B-cell or T-cell lymphoproliferative disorder . Reagent(s) Used CD2, CD3, CD4, CD5, CD7, CD8, CD10, CD11b, CD13, CD14, CD16, CD19, CD20, CD33, CD34, CD38, CD45, CD56, CD57, CD64, CD117, HLA-DR, kappa, lambda . at [facility] Jonathan Combs MD Pathologist . . Intended Use Flow cytometry is optimally used to immunophenotypically characterize abnormal populations when they are detected. Negative flow cytometry results do not exclude lymphoma or neoplasia. Possible false negative flow cytometry results may occur in, but are not limited to, the following: neoplastic cells in Hodgkin lymphoma are not typically adequately represented by routine clinical flow cytometry; neoplastic cells may be lost or inadequately represented due to degeneration, sample processing, sampling artifact, or patchy involvement; plasma cells are typically underrepresented by flow cytometry; immature cells/blasts may be underrepresented due to hemodilution; myeloproliferative disorders and low [facility] [address] [place] [address] PATHOLOGY RPT PROCEDURE Name: KATHERINE GIBSON Room #: 443-P [facility] IN M.R.#: [id number] Admission: 12/18/19 Date of : 45 Discharge: 01/19/20 Report #: [id number] Path Case #: [id number] grade myelodysplasia may not have immunophenotypic abnormalities or increased blasts. Correlation with all available clinical, laboratory, and morphologic data is always necessary to assess for the possibility of false negative flow cytometry results and to establish a diagnosis. Each marker in this analysis was used to assess for potential antigenic abnormalities or to evaluate detected abnormalities. . Any image or images that accompany this report are sales representative rural power images only and should not be used to render a diagnosis. . Disclaimer(s) This test was developed and its performance characteristics determined by [facility], [employer]. It has not been cleared or approved by the Food and Drug Administration. . Performing [facility] is a business unit of [employer] a wholly-owned subsidiary of [employer]. . This test was performed at [facility] at [address], [address] - Preschool Teacher: Jim Strickland MD. . For inquiries, the physician may contact Lab: [phone] . A complete copy of the report is on file. . Professional services performed by [employer]. at [address], [place] [address]. Technical services performed by [employer]. at [address], [place] [address]. . (CLW:amarely 01/13/2020) . [place] 01/16/2020 0018 Local . 02 Comment: Overall, the bone marrow is hypercellular for the patient's age with trilineage hematopoiesis, mild erythroid hyperplasia/erythroid hypoplasia, mild dyspoiesis, polyclonal plasmacytosis and no evidence of lymphoma, acute leukemia or plasma cell dyscrasia. Focal serous fat atrophy is noted. Special stains for micro-organisms are negative. Viral immunohistochemical stains are pending. Correlation with clinical history, additional laboratory data and cytogenetics is required. . (CLW:katherine; 01/15/2020) [address] [address] PATHOLOGY RPT PROCEDURE Name: KATHERINE GIBSON Room #: 443-P [facility] IN M.R.#: [id number] Admission: 12/18/19 Date of : 45 Discharge: 01/19/20 Report #: [id number] Path Case #: [id number] . 02 Addendum: . Special studies report received from [facility], [address] [place] [address], [address], [place], [address], on case [id number], labeled with their number [id number], dated 01/19/2020. . Cytogenetic Analysis Report . RESULT: Normal Male Karyotype 46,XY(20) . Specimen Type: Bone Marrow . Indication for Study: Iron deficiency anemia, Evaluation for lymphoma . INTERPRETATION: Cytogenetic analysis revealed no evidence of an acquired clonal abnormality. These findings should be interpreted in the context of clinical and pathologic findings. . See Flow Cytometry report [id number] for further information. . . Number of Metaphases Counted: 20 Banding: G-banding Number of Metaphase Cells Analyzed: 20 Band Level: 400 Number of Metaphase Cells Karyotyped: 2 Cultures Established: Unstimulated/Stimulated . at [facility] Jamison Lozano, Ph.D., [facility] Director of Cytogenetics and Molecular Oncology . Disclaimer This Test was performed by [facility] at [facility] [address], [address]. [facility] is a business unit of [employer] a wholly-owned subsidiary of [employer]. . . Any image(s) that accompany this report is/are a sales representative rural power image(s) only and should not be used to render a diagnosis. . Based on the resolution of this study, standard cytogenetic methodology does not routinely detect subtle or sub-microscopic rearrangements or low level mosaicism. . [address] [address] PATHOLOGY RPT PROCEDURE Name: KATHERINE GIBSON Room #: 443-P [facility] IN M.R.#: [id number] Admission: 12/18/19 Date of : 45 Discharge: 01/19/20 Report #: [id number] Path Case #: [id number] A complete copy of the report is on file. . Professional services performed by [employer]. at [address], [place] [address]. Technical services performed by [employer], [employer]. at [address], [place] [address]. . (CLW:am 01/20/2020) AZJ/01/20/2020 Addendum Electronically Signed by Alessia Mir MD, Pathologist Addendum #2: Additional properly controlled immunohistochemical stains are performed. . Block A1: CMV* - Scattered cells with equivocal staining, no convincing viral inclusions identified; HSV I* - Negative for viral inclusions; HSV II* - Negative for viral inclusions. . Block B1: CMV* - Scattered cells with equivocal staining, no convincing viral inclusion identified; HSV I* - Scattered cells with equivocal staining, no convincing viral inclusions identified; HSV II* - Negative for viral inclusions. . Block B2: CMV* - Scattered cells with equivocal staining, no convincing viral inclusions identified; HSV I* - No viral inclusions identified; HSV II* - No viral inclusions identified. . The final diagnosis remains unchanged. (CLW:[facility] 01/27/2020) . *This test was developed and its performance characteristics determined by [employer]. It has not been cleared or approved by the U.S. Food and Drug Administration. The FDA has determined that such clearance or approval is not necessary. This test is used for clinical purposes. It should not be regarded as investigational or for research. This laboratory is certified under the Clinical Laboratory Improvement Amendments of 1988 (CLIA) as qualified to perform high complexity clinical laboratory testing. . Professional services performed by [employer] [facility] at [address] [place] [address]. Technical services performed by [employer] at [address] [place] [address], [address], [place] [address]. P/01/27/2020 Addendum Electronically Signed by Alessia Mir MD, Pathologist [address] [address] PATHOLOGY RPT PROCEDURE Name: KATHERINE GIBSON Room #: 443-P DIS IN M.R.#: [id number] Admission: 12/18/19 Date of : 45 Discharge: 01/19/20 Report #: [id number] Path Case #: [id number] . 02 Electronically signed: . Alessia Mir MD, Pathologist NPI- [id number] . 01 Gross description: . A. Received in formalin labeled "Katherine Gibson, BM biopsy" is a cylindrical maciel-white bone core measuring 0.7 x 0.3 cm. Also present is a portion of maciel brown clotted blood and adherent maciel-white bony tissue measuring 1.8 x 0.4 x 0.3 cm. The specimen is submitted in A1 following immuno-decalcification. . B. Received in zinc formalin labeled "Katehrine Gibson, BM aspirate clot" is blood clot measuring 4.0 x 1.8 x 0.4 cm. The specimen is sectioned and submitted in B1-B2. ([facility]; 01/10/2020) [facility] 01/10/2020 1225 Local . 02 Microscopic: . CBC Data (01/06/20): WBC 17,200/uL, RBC 3.34, hemoglobin 8.0 g/dL, hematocrit 25.3%, MCV 75.7 fL, MCH 24.1 pg, MCHC 31.8 g/dL, RDW 21.4%, and platelet count 248,000/uL. White blood cell differential: segs 85.5%, lymphs 9.4%, monos 5.1%. . Peripheral Blood Smear: Cytomorphological examination of the Pires's stained peripheral blood smear confirms the provided data. Red blood cells are microcytic and have mild anisocytosis. White blood cells are mild to moderately increased in number. They are predominantly segmented neutrophils with reactive changes. Lymphocytes are predominantly small, round, and mature appearing with condensed chromatin and scant cytoplasm with admixed large granular lymphocytes. Monocytes are mature. Platelets are adequate in number and mainly normal in morphology with rare larger platelets noted. . Aspirate Smears: Cytomorphological examination of the Pires's stained aspirate smears shows spicules present. The overall cellularity is approximately 50%. The myeloid to erythroid ratio is 6.5:1. Full myeloid maturation is identified and shows very mild nuclear and cytoplasmic abnormalities. Erythroid maturation is mildly decreased in number and mildly dyspoietic with irregular nuclear contours and variable cell sizes. In a 500 cell differential, there are less than 1% blasts (no Dwain rods are seen), 73% more differentiated myeloids, 11% erythroid precursors, 9% lymphocytes and 7% plasma cells. Megakaryocytes are proportional in number and both normal and abnormal in morphology with variable sizes and nuclear abnormalities. Megakaryocytes with naked nuclei are noted. No lymphoid aggregates or markedly atypical lymphoid cells are seen. Mildly increased plasma cells are identified with mild atypia including variable cell sizes and binucleate forms. Iron stain of the aspirate smear shows 2/4+ iron [address] [address] PATHOLOGY RPT PROCEDURE Name: KATHERINE GIBSON Room #: 443-P DIS IN M.R.#: [id number] Admission: 12/18/19 Date of : 45 Discharge: 01/19/20 Report #: [id number] Path Case #: [id number] positivity with spicules present. No ringed sideroblasts are identified. . . Core Biopsy and Cell Clot: The decalcified bone marrow core biopsy is adequate. The bone marrow is hypercellular with an overall cellularity of 60 to 70%. Focal serous fat atrophy is noted. The myeloid to erythroid ratio is mildly increased. Myeloid and erythroid maturation are mildly dyspoietic. Megakaryocytes are normal in number and both normal and abnormal in morphology. Again, megakaryocyte naked nuclei are noted. No lymphoid aggregates or markedly atypical lymphoid cells are seen. There is a mild increase in plasma cells. Bony trabeculae and blood vessels are unremarkable. The cell clot has spicules present that are similar in cellularity and differential morphology as previously described. A rare lymphoid aggregate and mild increase in plasma cells are noted. . Properly-controlled special stains are performed. . Block A1: Iron - 1/4+ iron positivity; Reticulin - No significant reticulin fibrosis; AFB - Negative for acid-fast bacilli; GMS - Negative for fungal organisms; PAS-D - Negative for organisms. . Block B1: Iron - 1/4+ iron positivity with spicules present; AFB - Negative for acid-fast bacilli; GMS - Negative for fungal organisms; PAS-D - Negative for organisms. . Block B2: AFB - Negative for acid-fast bacilli; GMS - Negative for fungal organisms; PAS-D - Negative for organisms. . To confirm the flow cytometry findings, further evaluate the plasma cells and to identify cells in a tissue architectural context, properly-controlled immunohistochemical stains are performed. . Block A1: CD34 - No increased or abnormally-localized blasts; CD117 - No increased blasts; MPO - Confirms the mildly increased M:E ratio; Glycophorin-A - Confirms the mildly increased M:E ratio and no markedly enlarged erythroblasts; CD138 - Plasma cells comprise approximately 20% of the marrow cellularity; [place] and lambda in-situ hybridization - Plasma cells are polyclonal; [facility] [address] [address] PATHOLOGY RPT PROCEDURE Name: KATHERINE GIBSON #: 443-P DIS IN M.R.#: [id number] Admission: 12/18/19 Date of : 45 Discharge: 01/19/20 Report #: [id number] Path Case #: [id number] CVM - pending; HSV1 - pending; HSV2 - pending. . Block B1: CD34 - No increased blasts; CD117 - No increased blasts; MPO - Confirms the mildly increased M:E ratio; Glycophorin-A - Confirms the mildly increased M:E ratio, erythroblast without markedly increased size; CD138 - Plasma cells comprise 20% of the marrow cellularity; [place] and lambda in-situ hybridization - Plasma cells are polyclonal; CMV - pending; HSV1 - pending; HSV2 - pending. . Block B2: CMV - pending; HSV1 - pending; HSV2 - pending. . Flow Cytometry: Flow cytometric immunophenotypic analysis was performed at [facility]. The diagnosis is "no evidence of a B-cell or T-cell lymphoproliferative disorder, inverted T-cells, CD4:CD8 ratio (0.1:1), no evidence for left shifted myeloid maturation or an increased blast population." There are 0.3% myeloid blasts. There are 7% lymphocytes. Of the lymphocytes, there are 0.2% polyclonal B-cells. T-cells have a CD4/CD8 ratio of 0.1 (inverted) and no aberrant T-cell antigen expression. There are 0.8% plasma cells. . Cytogenetics Analysis: Cytogenetic chromosomal analysis is pending at [facility] ([id number]). . (CLW:katherine; 01/15/2020) . 02 Pathologist provided ICD-10: D50.9, D72.829, D75.89 . 02 CPT . 408166, 378320, 516213, 730122, 446406, 963964, 826742, 936426, 130977, 211717, 628047, 980961, H08640, C69859, G48264, T16117, 081881, 814586, 367082, 010438, 365349, 467189, M37115 Specimen Comment: A courtesy copy of this report has been sent to [phone] Specimen Comment: [id number] Specimen Comment: Report sent to / DR HICKS [place] [phone] PATHOLOGY RPT PROCEDURE Name: KATHERINE GIBSON Room #: 443-P [facility] IN M.R.#: [id number] Admission: 12/18/19 Date of : 45 Discharge: 01/19/20 Report #: [id number] Path Case #: [id number] Performed at: 01 [facility] [address] [id number] MD Benji Llanes MD Phone: [phone] Performed at: 02 [facility] [address] [id number] MD Henrik Luciano MD Phone: [phone]
== END 2020-01-19 23:05 | DRG 974 ==
LOC: OPONC 09:32 → 4S 15:38 → ICU 01-12 06:31 → 4S 01-19 18:07
PROVIDERS: Hospitalist; Internal Medicine; Internal Medicine Infectious Disease; Internal Medicine Nephrology; Internal Medicine Pulmonary Disease; Nurse Practitioner; Psychiatry & Neurology Neurology; Psychiatry & Neurology Neuromuscular Medicine; Radiology Diagnostic Radiology; Specialist; ADMIT Specialist
DX: B20 Human immunodeficiency virus [HIV] disease (principal); A41.9 Sepsis, unspecified organism; J69.0 Pneumonitis due to inhalation of food and vomit; E43 Unspecified severe protein-calorie malnutrition; J96.01 Acute respiratory failure with hypoxia; R65.21 Severe sepsis with septic shock; N17.0 Acute kidney failure with tubular necrosis; C85.90 Non-Hodgkin lymphoma, unspecified, unspecified site; G72.0 Drug-induced myopathy; E87.1 Hypo-osmolality and hyponatremia; R64 Cachexia; C85.10 Unspecified B-cell lymphoma, unspecified site; D50.0 Iron deficiency anemia secondary to blood loss (chronic); I25.10 Atherosclerotic heart disease of native coronary artery without angina pectoris; E86.0 Dehydration; I10 Essential (primary) hypertension; R59.9 Enlarged lymph nodes, unspecified; D50.9 Iron deficiency anemia, unspecified; D63.8 Anemia in other chronic diseases classified elsewhere; H66.90 Otitis media, unspecified, unspecified ear; Z60.2 Problems related to living alone; K57.30 Diverticulosis of large intestine without perforation or abscess without bleeding; K63.5 Polyp of colon; K86.9 Disease of pancreas, unspecified; E55.9 Vitamin D deficiency, unspecified; D36.9 Benign neoplasm, unspecified site; E11.42 Type 2 diabetes mellitus with diabetic polyneuropathy; G70.9 Myoneural disorder, unspecified; I95.9 Hypotension, unspecified; M48.02 Spinal stenosis, cervical region; E87.5 Hyperkalemia; E88.09 Other disorders of plasma-protein metabolism, not elsewhere classified; Z23 Encounter for immunization; Z68.23 Body mass index [BMI] 23.0-23.9, adult; Z79.899 Other long term (current) drug therapy; Z20.828 Contact with and (suspected) exposure to other viral communicable diseases
CPT/HCPCS: 10102; 10204; 27000; 62110; 62900